=== PATIENT | male | born 1940 | race Caucasian/White ===

== ENCOUNTER 2022-04-09 08:49 | Emergency (ER) | payer OTHER, MEDICARE ==
--- OUTSIDE RECORDS SUMMARY | 2022-04-09 08:57 | XMS REPORT | Continuity of Care Document ---
:1940 Author Organization [facility] [place] t Address [address] [place] [address] Dr. [address]. [address] [place] [address] Care Team Providers Name Role Phone Rafael Pulido Primary Care Physician FERNANDO BROWN Attending Clinician Unavailable GUANAKITO ARRIOLA Attending Clinician Unavailable BRENTON CALABRESE Attending Clinician Unavailable Fernando Brown MD Attending Clinician Doctor Unassigned, Delevan Attending Clinician Unavailable Guanakito Dee Attending Clinician Pob, [facility] Main Attending Clinician Unavailable Kelli Montiel MD Attending Clinician RUMA PRASAD Attending Clinician Unavailable Ruma Prasad MD Attending Clinician BILL MCNEIL Attending Clinician Unavailable Bill Mcneil MD Attending Clinician PARAS SNOW Attending Clinician Unavailable PARAS SNOW Attending Clinician Unavailable Paras Snow MD Attending Clinician FERNANDO BROWN Admitting Clinician Unavailable BILL MCNEIL Admitting Clinician Unavailable Payers Payer Name Policy Type Policy Number Effective Date Expiration Date S [facility] MEDICARE PART A \\T\\ [id number] 2003 B 00:00:00 [facility] [id number] 2018 MEDICARE SUPPLEMENT 00:00:00 Problems Condition Condition Condition Status Onset Resolution Last Treating Co mments Source Name Details Category Date Date Treatment Clinician Date 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 Added automatic ally from request for surgery [id number] Abnormal Abnormal Disease Active Metho di cardiovasc cardiovasc 03-22 st ular ular 00:00: Hospita stress stress 00 l test test Hypertensi Hypertensi Disease Active U nivers on on ity of [facility] Allergies, Adverse Reactions, Alerts Allergy Allergy Status Severity Reaction(s) Onset Inactive Treating Comm ents Source Name Type Date Date Clinician Predniso Propensi Active Other (See Hallucina Methodi ne ty to Comments) 03-[address] adverse 00:00: Hospita reaction 00 l s to drug Predniso Propensi Active Other - See Hyperact i Univers ne ty to comments 3-15 vity, ity of adverse 00:00: couldn't [place] reaction 00 sleep Medical s to [place] drug PREDNISO DRUG Active Med Other-Cmnt Univ ers NE INGREDI 3-15 ity of 00:00: [place] 00 [facility] Family History Family Member Diagnosis Comments Start Date Stop Date Source Maternal aunt Heart attack [facility] Maternal uncle Heart attack [facility] Social History Social Habit Start Date Stop Date Quantity Comments Source History of Cigarette Smoker Universi ty of tobacco use [facility] Exposure to 2022-03-07 2022-03-17 Not sure University of SARS-CoV-2 00:00:00 10:16:00 [facility] (event) Branch Tobacco use and 2022-03-17 2022-03-17 Smokeless tobacco Un iversity of exposure 00:00:00 00:00:00 non-user [facility] Tobacco Comment 2022-03-17 2022-03-17 Smoke for 4 years Un iversity of 00:00:00 00:00:00 and quit 60 years [facility] chuy ago. Branch Alcohol intake 2018-05-16 2018-05-16 Current [facility] 00:00:00 00:00:00 non-drinker of alcohol (finding) Sex Ass[birth year] [facility] 00:00:00 00:00:00 Smoking Status Start Date Stop Date Source Ex-smoker 2022-03-17 00:00:00 2022-03-17 00:00:00 [facility] Never smoked tobacco [facility] Medications Ordered Filled Start Stop Current Ordering Indication Dosage Frequency Signature Comments Components Source Medication Medication Date Date Medication? Clinician (SIG) Name Name gemfibroziL 0 Yes 600mg Take 600 U nivers 600 mg 1-18 mg by ity of tablet 10:52: mouth in [place] 39 the Medical morning Branch and 600 mg in the evening. isosorbide 0 Yes 210mg Take 210 Un el mononitrate 1-18 mg by ity of 60 mg 24 hr 10:52: mouth in [place] tablet 39 the Medical morning. [place] Patient states he takes 90 mg in the am and 120 mg in the pm for a total of 210 mg of Isosorbide Mononitrat e 60 mg tablet. levothyroxi 0 Yes 50ug Take 50 Uni vers ne 50 mcg 1-18 mcg by ity of tablet 10:52: mouth [place] 39 every Medical morning. [place] vitamin e Yes 400U Take 400 Univ ers (AQUASOL E) 1-18 Units by ity of 400 unit 10:52: mouth [place] capsule 39 daily. [facility] gemfibroziL Yes 600mg Take 600 U nivers 600 mg 1-18 mg by ity of tablet 10:52: mouth in [place] 39 the Medical morning Branch and 600 mg in the evening. isosorbide 0 Yes 210mg Take 210 Un el mononitrate 1-18 mg by ity of 60 mg 24 hr 10:52: mouth in [place] tablet 39 the Medical morning. [place] Patient states he takes 90 mg in the am and 120 mg in the pm for a total of 210 mg of Isosorbide Mononitrat e 60 mg tablet. levothyroxi 2022-0 Yes 50ug Take 50 Uni vers ne 50 mcg 1-18 mcg by ity of tablet 10:52: mouth [place] 39 every Medical morning. Branch vitamin e 2023-0 Yes 400U Take 400 Univ ers (AQUASOL E) 1-18 Units by ity of 400 unit 10:52: mouth [place] capsule 39 daily. Medical Branch gemfibroziL 2023-0 Yes 600mg Take 600 U nivers 600 mg 1-18 mg by ity of tablet 10:52: mouth in [place] 39 the Medical morning Branch and 600 mg in the evening. isosorbide 2023-0 Yes 210mg Take 210 Un el mononitrate 1-18 mg by ity of 60 mg 24 hr 10:52: mouth in [place] tablet 39 the Medical morning. Branch Patient states he takes 90 mg in the am and 120 mg in the pm for a total of 210 mg of Isosorbide Mononitrat e 60 mg tablet. levothyroxi 3-0 Yes 50ug Take 50 Uni vers ne 50 mcg 1-18 mcg by ity of tablet 10:52: mouth [place] 39 every Medical morning. Branch vitamin e 3-0 Yes 400U Take 400 Univ ers (AQUASOL E) 1-18 Units by ity of 400 unit 10:52: mouth [place] capsule 39 daily. Medical Branch gemfibroziL 3-0 Yes 600mg Take 600 U nivers 600 mg 1-18 mg by ity of tablet 10:52: mouth in [place] 39 the Medical morning Branch and 600 mg in the evening. isosorbide 2023-0 Yes 210mg Take 210 Un el mononitrate 1-18 mg by ity of 60 mg 24 hr 10:52: mouth in [place] tablet 39 the Medical morning. Branch Patient states he takes 90 mg in the am and 120 mg in the pm for a total of 210 mg of Isosorbide Mononitrat e 60 mg tablet. levothyroxi 3-0 Yes 50ug Take 50 Uni vers ne 50 mcg 1-18 mcg by ity of tablet 10:52: mouth [place] 39 every Medical morning. Branch vitamin e 3-0 Yes 400U Take 400 Univ ers (AQUASOL E) 1-18 Units by ity of 400 unit 10:52: mouth [place] capsule 39 daily. Medical Branch gemfibroziL 2023-0 Yes 600mg Take 600 U nivers 600 mg 1-18 mg by ity of tablet 10:52: mouth in [place] 39 the Medical morning Branch and 600 mg in the evening. isosorbide 2023-0 Yes 210mg Take 210 Un el mononitrate 1-18 mg by ity of 60 mg 24 hr 10:52: mouth in [place] tablet 39 the Medical morning. Branch Patient states he takes 90 mg in the am and 120 mg in the pm for a total of 210 mg of Isosorbide Mononitrat e 60 mg tablet. levothyroxi 3-0 Yes 50ug Take 50 Uni vers ne 50 mcg 1-18 mcg by ity of tablet 10:52: mouth [place] 39 every Medical morning. Branch vitamin e 3-0 Yes 400U Take 400 Univ ers (AQUASOL E) 1-18 Units by ity of 400 unit 10:52: mouth [place] capsule 39 daily. Medical Branch gemfibroziL 3-0 Yes 600mg Take 600 U nivers 600 mg 1-18 mg by ity of tablet 10:52: mouth in [place] 39 the Medical morning Branch and 600 mg in the evening. isosorbide 3-0 Yes 210mg Take 210 Un el mononitrate 1-18 mg by ity of 60 mg 24 hr 10:52: mouth in [place] tablet 39 the Medical morning. Branch Patient states he takes 90 mg in the am and 120 mg in the pm for a total of 210 mg of Isosorbide Mononitrat e 60 mg tablet. levothyroxi 3-0 Yes 50ug Take 50 Uni vers ne 50 mcg 1-18 mcg by ity of tablet 10:52: mouth [place] 39 every Medical morning. Branch vitamin e 3-0 Yes 400U Take 400 Univ ers (AQUASOL E) 1-18 Units by ity of 400 unit 10:52: mouth [place] capsule 39 daily. Medical Branch gemfibroziL 3-0 Yes 600mg Take 600 U nivers 600 mg 1-18 mg by ity of tablet 10:52: mouth in [place] 39 the Medical morning Branch and 600 mg in the evening. isosorbide 2023-0 Yes 210mg Take 210 Un el mononitrate 1-18 mg by ity of 60 mg 24 hr 10:52: mouth in [place] tablet 39 the Medical morning. [place] Patient states he takes 90 mg in the am and 120 mg in the pm for a total of 210 mg of Isosorbide Mononitrat e 60 mg tablet. levothyroxi Yes 50ug Take 50 Uni vers ne 50 mcg 1-18 mcg by ity of tablet 10:52: mouth [place] 39 every Medical morning. Branch vitamin e Yes 400U Take 400 Univ ers (AQUASOL E) 1-18 Units by ity of 400 unit 10:52: mouth [place] capsule 39 daily. Medical Branch gemfibroziL Yes 600mg Take 600 U nivers 600 mg 1-18 mg by ity of tablet 10:52: mouth in [place] 39 the Medical morning Branch and 600 mg in the evening. isosorbide Yes 210mg Take 210 Un el mononitrate 1-18 mg by ity of 60 mg 24 hr 10:52: mouth in [place] tablet 39 the Medical morning. Branch Patient states he takes 90 mg in the am and 120 mg in the pm for a total of 210 mg of Isosorbide Mononitrat e 60 mg tablet. levothyroxi Yes 50ug Take 50 Uni vers ne 50 mcg 1-18 mcg by ity of tablet 10:52: mouth [place] 39 every Medical morning. Branch vitamin e Yes 400U Take 400 Univ ers (AQUASOL E) 1-18 Units by ity of 400 unit 10:52: mouth [place] capsule 39 daily. Medical Branch metoprolol Yes 75mg Take 75 mg U nivers tartrate 50 1-18 by mouth ity of mg tablet 10:35: in the [place] [address] morning Medical and 75 mg Branch in the evening. Patient takes 1.5 tablet (75 mg) in the morning and 1.5 tablet (75 mg) at night for a total of 150 mg of Metoprolol . cholestyram Yes 1{packe Take 1 U nivers ine 1-18 t} Packet by ity of (QUESTRAN) 10:35: [place] 4 [place] 20 (two) Medical packet times Branch daily. aspirin 325 Yes 325mg Take 325 U nivers mg tablet 1-18 mg by ity of 10:35: mouth [place] 20 daily. Medical Branch MULTIVITAMI Yes 1{tbl} Take 1 Tab Univers N ORAL 1-18 by mouth ity of 10:35: daily. [place] 20 Medical Branch ascorbic 2023-0 Yes 500mg Take 500 Univ ers acid 1-18 mg by ity of (VITAMIN C) 10:35: mouth [place] 500 mg 20 daily. Medical tablet Branch vitamin 3-0 Yes 1000ug Take 1,000 Un el B-12 1-18 mcg by ity of (CYANOCOBAL 10:35: mouth in [place] AGUILAR) 500 20 the Medical mcg tablet morning. Branc h omega-3 2022-0 Yes 3g Take 3 g Univer s fatty 1-18 by mouth ity of acids-vitam 10:35: [place] in E (FISH 20 morning. Medic al OIL) 1,000 Branch mg capsule acetaminoph 2022-0 Yes 500mg Take 500 U nivers en 500 mg 1-18 mg by ity of tablet 10:35: mouth in [place] 20 the Medical morning Branch and 500 mg in the evening. metoprolol 2022-0 Yes 75mg Take 75 mg U nivers tartrate 50 1-18 by mouth ity of mg tablet 10:35: in the [place] 20 morning Medical and 75 mg Branch in the evening. Patient takes 1.5 tablet (75 mg) in the morning and 1.5 tablet (75 mg) at night for a total of 150 mg of Metoprolol . cholestyram 2022-0 Yes 1{packe Take 1 U nivers ine 1-18 t} Packet by ity of (QUESTRAN) 10:35: mouth 2 [place] 4 [place] 20 (two) Medical packet times Branch daily. aspirin 325 2022-0 Yes 325mg Take 325 U nivers mg tablet 1-18 mg by ity of 10:35: mouth [place] 20 daily. Medical Branch MULTIVITAMI 2022-0 Yes 1{tbl} Take 1 Tab Univers N ORAL 1-18 by mouth ity of 10:35: daily. [place] 20 Medical Branch ascorbic 3-0 Yes 500mg Take 500 Univ ers acid 1-18 mg by ity of (VITAMIN C) 10:35: mouth [place] 500 mg 20 daily. Medical tablet Branch vitamin 3-0 Yes 1000ug Take 1,000 Un el B-12 1-18 mcg by ity of (CYANOCOBAL 10:35: mouth in [place] AGUILAR) 500 20 the Medical mcg tablet morning. Branc h omega-3 2022-0 Yes 3g Take 3 g Univer s fatty 1-18 by mouth ity of acids-vitam 10:35: [place] in [place] (FISH 20 morning. Medic al OIL) 1,000 Branch mg capsule acetaminoph 2022-0 Yes 500mg Take 500 U nivers en 500 mg 1-18 mg by ity of tablet 10:35: mouth in [place] 20 the Medical morning Branch and 500 mg in the evening. metoprolol 2022-0 Yes 75mg Take 75 mg U nivers tartrate 50 1-18 by mouth ity of mg tablet 10:35: in the [place] 20 morning Medical and 75 mg Branch in the evening. Patient takes 1.5 tablet (75 mg) in the morning and 1.5 tablet (75 mg) at night for a total of 150 mg of Metoprolol . cholestyram 2022-0 Yes 1{packe Take 1 U nivers ine 1-18 t} Packet by ity of (QUESTRAN) 10:35: mouth 2 [place] 4 [place] 20 (two) Medical packet times Branch daily. aspirin 325 2022-0 Yes 325mg Take 325 U nivers mg tablet 1-18 mg by ity of 10:35: mouth [place] 20 daily. Medical Branch MULTIVITAMI 2022-0 Yes 1{tbl} Take 1 Tab Univers N ORAL 1-18 by mouth ity of 10:35: daily. [place] [address] Medical Branch ascorbic 3-0 Yes 500mg Take 500 Univ ers acid 1-18 mg by ity of (VITAMIN C) 10:35: mouth [place] 500 mg 20 daily. Medical tablet Branch vitamin 2022-0 Yes 1000ug Take 1,000 Un el B-12 1-18 mcg by ity of (CYANOCOBAL 10:35: mouth in [place] AGUILAR) 500 20 the Medical mcg tablet morning. Branc h omega-3 3-0 Yes 3g Take 3 g Univer s fatty 1-18 by mouth ity of acids-vitam 10:35: [place] in [place] (FISH 20 morning. Medic al OIL) 1,000 Branch mg capsule acetaminoph 2022-0 Yes 500mg Take 500 U nivers en 500 mg 1-18 mg by ity of tablet 10:35: mouth in [place] 20 the Medical morning Branch and 500 mg in the evening. metoprolol 2022-0 Yes 75mg Take 75 mg U nivers tartrate 50 1-18 by mouth ity of mg tablet 10:35: in the [place] 20 morning Medical and 75 mg Branch in the evening. Patient takes 1.5 tablet (75 mg) in the morning and 1.5 tablet (75 mg) at night for a total of 150 mg of Metoprolol . cholestyram 3-0 Yes 1{packe Take 1 U nivers ine 1-18 t} Packet by ity of (QUESTRAN) 10:35: mouth [place] 4 [place] 20 (two) Medical packet times Branch daily. aspirin 325 202-0 Yes 325mg Take 325 U nivers mg tablet 1-18 mg by ity of 10:35: mouth [place] 20 daily. Medical Branch MULTIVITAMI 2022-0 Yes 1{tbl} Take 1 Tab Univers N ORAL 1-18 by mouth ity of 10:35: daily. [place] [address] Medical Branch ascorbic 3-0 Yes 500mg Take 500 Univ ers acid 1-18 mg by ity of (VITAMIN C) 10:35: mouth [place] 500 mg 20 daily. Medical tablet Branch vitamin 2022-0 Yes 1000ug Take 1,000 Un el B-12 1-18 mcg by ity of (CYANOCOBAL 10:35: mouth in [place] AGUILAR) 500 20 the Medical mcg tablet morning. Branc h omega-3 2022-0 Yes 3g Take 3 g Univer s fatty 1-18 by mouth ity of acids-vitam 10:35: [place] in [place] (FISH 20 morning. Medic al OIL) 1,000 Branch mg capsule acetaminoph 2022-0 Yes 500mg Take 500 U nivers en 500 mg 1-18 mg by ity of tablet 10:35: mouth in [place] 20 the Medical morning Branch and 500 mg in the evening. metoprolol 3-0 Yes 75mg Take 75 mg U nivers tartrate 50 1-18 by mouth ity of mg tablet 10:35: in the [place] [address] morning Medical and 75 mg Branch in the evening. Patient takes 1.5 tablet (75 mg) in the morning and 1.5 tablet (75 mg) at night for a total of 150 mg of Metoprolol . cholestyram 2022-0 Yes 1{packe Take 1 U nivers ine 1-18 t} Packet by ity of (QUESTRAN) 10:35: mouth 2 [place] 4 gram 20 (two) Medical packet times Branch daily. aspirin 325 2022-0 Yes 325mg Take 325 U nivers mg tablet 1-18 mg by ity of 10:35: mouth [place] 20 daily. Medical Branch MULTIVITAMI 2022-0 Yes 1{tbl} Take 1 Tab Univers N ORAL 1-18 by mouth ity of 10:35: daily. [place] [address] Medical Branch ascorbic 2022-0 Yes 500mg Take 500 Univ ers acid 1-18 mg by ity of (VITAMIN C) 10:35: mouth [place] 500 mg 20 daily. Medical tablet Branch vitamin 2022-0 Yes 1000ug Take 1,000 Un el B-12 1-18 mcg by ity of (CYANOCOBAL 10:35: mouth in [place] AGUILAR) 500 20 the Medical mcg tablet morning. Branc h omega-3 0 Yes 3g Take 3 g Univer s fatty 1-18 by mouth ity of acids-vitam 10:35: in the [facility] [place] [facility] (FISH [facility] morning. Medic al OIL) 1,000 Branch mg capsule acetaminoph 0 Yes 500mg Take 500 U nivers en 500 mg 1-18 mg by ity of tablet 10:35: mouth in [place] 20 the Medical morning Branch and 500 mg in the evening. metoprolol 0 Yes 75mg Take 75 mg U nivers tartrate 50 1-18 by mouth ity of mg tablet 10:35: in the [place] 20 morning Medical and 75 mg Branch in the evening. Patient takes 1.5 tablet (75 mg) in the morning and 1.5 tablet (75 mg) at night for a total of 150 mg of Metoprolol . cholestyram 0 Yes 1{packe Take 1 U nivers ine 1-18 t} Packet by ity of (QUESTRAN) 10:35: mouth 2 [place] 4 gram 20 (two) Medical packet times Branch daily. aspirin 325 2022-0 Yes 325mg Take 325 U nivers mg tablet 1-18 mg by ity of 10:35: mouth [place] 20 daily. Medical Branch MULTIVITAMI 0 Yes 1{tbl} Take 1 Tab Univers N ORAL 1-18 by mouth ity of 10:35: daily. [place] [address] Medical Branch ascorbic 2022-0 Yes 500mg Take 500 Univ ers acid 1-18 mg by ity of (VITAMIN C) 10:35: mouth [place] 500 mg 20 daily. Medical tablet Branch vitamin 3-0 Yes 1000ug Take 1,000 Un el B-12 1-18 mcg by ity of (CYANOCOBAL 10:35: mouth in [place] AGUILAR) 500 20 the Medical mcg tablet morning. Branc h omega-3 2022-0 Yes 3g Take 3 g Univer s fatty 1-18 by mouth ity of acids-vitam 10:35: in [place] in [place] (FISH 20 morning. Medic al OIL) 1,000 Branch mg capsule acetaminoph 2022-0 Yes 500mg Take 500 U nivers en 500 mg 1-18 mg by ity of tablet 10:35: mouth in [place] 20 the Medical morning Branch and 500 mg in the evening. metoprolol 2022-0 Yes 75mg Take 75 mg U nivers tartrate 50 1-18 by mouth ity of mg tablet 10:35: in the [place] 20 morning Medical and 75 mg Branch in the evening. Patient takes 1.5 tablet (75 mg) in the morning and 1.5 tablet (75 mg) at night for a total of 150 mg of Metoprolol . cholestyram 2022-0 Yes 1{packe Take 1 U nivers ine 1-18 t} Packet by ity of (QUESTRAN) 10:35: mouth 2 [place] 4 gram 20 (two) Medical packet times Branch daily. aspirin 325 2022-0 Yes 325mg Take 325 U nivers mg tablet 1-18 mg by ity of 10:35: mouth [place] 20 daily. Medical Branch MULTIVITAMI 2022-0 Yes 1{tbl} Take 1 Tab Univers N ORAL 1-18 by mouth ity of 10:35: daily. [place] 20 Medical Branch ascorbic 3-0 Yes 500mg Take 500 Univ ers acid 1-18 mg by ity of (VITAMIN C) 10:35: mouth [place] 500 mg 20 daily. Medical tablet Branch vitamin 2022-0 Yes 1000ug Take 1,000 Un el B-12 1-18 mcg by ity of (CYANOCOBAL 10:35: mouth in [place] AGUILAR) 500 20 the Medical mcg tablet morning. Branc h omega-3 2022-0 Yes 3g Take 3 g Univer s fatty 1-18 by mouth ity of acids-vitam 10:35: [place] in [place] (FISH 20 morning. Medic al OIL) 1,000 Branch mg capsule acetaminoph 0 Yes 500mg Take 500 U nivers en 500 mg 1-18 mg by ity of tablet 10:35: mouth in [place] 20 the Medical morning Branch and 500 mg in the evening. metoprolol 2022-0 Yes 75mg Take 75 mg U nivers tartrate 50 1-18 by mouth ity of mg tablet 10:35: in the [place] [address] morning Medical and 75 mg Branch in the evening. Patient takes 1.5 tablet (75 mg) in the morning and 1.5 tablet (75 mg) at night for a total of 150 mg of Metoprolol . cholestyram 2022-0 Yes 1{packe Take 1 U nivers ine 1-18 t} Packet by ity of (QUESTRAN) 10:35: mouth 2 [place] 4 gram 20 (two) Medical packet times Branch daily. aspirin 325 2022-0 Yes 325mg Take 325 U nivers mg tablet 1-18 mg by ity of 10:35: mouth [place] 20 daily. Medical Branch MULTIVITAMI 0 Yes 1{tbl} Take 1 Tab Univers N ORAL 1-18 by mouth ity of 10:35: daily. [place] [address] Medical Branch ascorbic 2022-0 Yes 500mg Take 500 Univ ers acid 1-18 mg by ity of (VITAMIN C) 10:35: mouth [place] 500 mg 20 daily. Medical tablet Branch vitamin 2022-0 Yes 1000ug Take 1,000 Un el B-12 1-18 mcg by ity of (CYANOCOBAL 10:35: mouth [place] AGUILAR) 500 20 the Medical mcg tablet morning. Branc h omega-3 2022-0 Yes 3g Take 3 g Univer s fatty 1-18 by mouth ity of acids-vitam 10:35: in [place] in [place] (FISH 20 morning. Medic al OIL) 1,000 Branch mg capsule acetaminoph 2022-0 Yes 500mg Take 500 U nivers en 500 mg 1-18 mg by ity of tablet 10:35: mouth in [place] 20 the Medical morning Branch and 500 mg in the evening. valACYclovi 2021-1 2022- No 1000mg [id number] Take 1 Methodi r (VALTREX) 0-03 12-[id number] 1000 MG 00:00: 04:59 3D (1,000 mg [facility] tablet 00 :00 total) by l mouth 3 (three) times a day for 7 days. HYDROcodone 2021-02 1{tbl} 1 tablet, Univers -acetaminop 0-01 11-28 Oral, ity of hen (NORCO 16:30: 16:34 ONCE, 1 [place] 5) 5-325 mg 00 :00 dose, On Medi claire tablet 1 Sat Branch tablet 11/28/21 at 1130, ALEX HYDROcodone 2021-02 No 1{tbl} Take 1 Tab Univers -acetaminop 0-01 11-28 by mouth ity of hen 11:32: 00:00 as needed [place] (LORTAB) 22 :00 for Pain. Medica l 7.5-500 mg Branch per tablet HYDROcodone 2021-02 No [id number] 1{tbl} Take 1 U nivers -acetaminop 0-12-06 tablet by it y of hen (NORCO) 00:00: 04:59 mouth [place] 7.5-325 mg 00 :00 every 8 Medica l per tablet (eight) Branch hours as needed for Pain for up to 7 days. Indication s: acute pain FENTanyl PF No 50ug 50 mcg, Un el (SUBLIMAZE 11-27 Slow IV ity o f (PF)) 05:15: 04:13 Push, [place] injection 00 :00 ONCE, 1 Medical 50 mcg dose, On Branch 11/27/21 at 0015, Routine ondansetron No 4mg 4 mg, Slow Univers (ZOFRAN 11-27 IV Push, ity of (PF)) 04:15: 04:13 ONCE, 1 [place] injection 4 00 :00 dose, On Medi claire mg [place] Branch 11/26/21 at 2315, ALEX iopamidol No [id number] 60mL 60 mL, Univers (ISOVUE 11-27 Intravenou ity o f 370-500 mL) 03:45: 03:45 s, ONCE, 1 [place] injection 00 :00 dose, On Medica l 60 mL [place] Branch 11/26/21 at 2245, Routine traMADoL 2021-0 Yes [id number] 50mg Take 1 Univers (ULTRAM) 50 9-29 tablet by ity of mg tablet 00:00: mouth [place] 00 every 6 Medical (six) Branch hours as needed for Pain (scale 7-10). Indication s: acute pain traMADoL 2021-0 Yes [id number] 50mg Take 1 Univers (ULTRAM) 50 9-29 tablet by ity of mg tablet 00:00: mouth [place] 00 every 6 Medical (six) Branch hours as needed for Pain (scale 7-10). Indication s: acute pain ketorolac 2021-0 Yes [id number] 10mg Take 1 U nivers 10 mg 9-29 tablet by ity of tablet 00:00: mouth [place] 00 every 6 Medical (six) Branch hours as needed for Pain (scale 7-10) (ALTERNATE WITH ULTRAM FOR PAIN). traMADoL 2021-0 Yes [id number] 50mg Take 1 Univers (ULTRAM) 50 9-29 tablet by ity of mg tablet 00:00: mouth [place] 00 every 6 Medical (six) Branch hours as needed for Pain (scale 7-10). Indication s: acute pain ketorolac 2021-0 Yes [id number] 10mg Take 1 U nivers 10 mg 9-29 tablet by ity of tablet 00:00: mouth [place] 00 every 6 Medical (six) Branch hours as needed for Pain (scale 7-10) (ALTERNATE WITH ULTRAM FOR PAIN). traMADoL 2021-0 Yes [id number] 50mg Take 1 Univers (ULTRAM) 50 9-29 tablet by ity of mg tablet 00:00: mouth [place] 00 every 6 Medical (six) Branch hours as needed for Pain (scale 7-10). Indication s: acute pain ketorolac 2021-0 Yes [id number] 10mg Take 1 U nivers 10 mg 9-29 tablet by ity of tablet 00:00: mouth [place] 00 every 6 Medical (six) Branch hours as needed for Pain (scale 7-10) (ALTERNATE WITH ULTRAM FOR PAIN). traMADoL 2021-0 Yes [id number] 50mg Take 1 Univers (ULTRAM) 50 9-29 tablet by ity of mg tablet 00:00: mouth [place] 00 every 6 Medical (six) Branch hours as needed for Pain (scale 7-10). Indication s: acute pain ketorolac 2022-0 Yes [id number] 10mg Take 1 U nivers 10 mg 9-29 tablet by ity of tablet 00:00: mouth [place] 00 every 6 Medical (six) Branch hours as needed for Pain (scale 7-10) (ALTERNATE WITH ULTRAM FOR PAIN). traMADoL 2-0 Yes [id number] 50mg Take 1 Univers (ULTRAM) 50 9-29 tablet by ity of mg tablet 00:00: mouth [place] 00 every 6 Medical (six) Branch hours as needed for Pain (scale 7-10). Indication s: acute pain ketorolac 2022-0 Yes [id number] 10mg Take 1 U nivers 10 mg 9-29 tablet by ity of tablet 00:00: mouth [place] 00 every 6 Medical (six) Branch hours as needed for Pain (scale 7-10) (ALTERNATE WITH ULTRAM FOR PAIN). traMADoL 2021-0 Yes [id number] 50mg Take 1 Univers (ULTRAM) 50 9-29 tablet by ity of mg tablet 00:00: mouth [place] 00 every 6 Medical (six) Branch hours as needed for Pain (scale 7-10). Indication s: acute pain ketorolac 2021-0 Yes [id number] 10mg Take 1 U nivers 10 mg 9-29 tablet by ity of tablet 00:00: mouth [place] 00 every 6 Medical (six) Branch hours as needed for Pain (scale 7-10) (ALTERNATE WITH ULTRAM FOR PAIN). traMADoL 2021-0 Yes 4647 50mg Take 1 [facility] (ULTRAM) 50 9-29 tablet by ity of mg tablet 00:00: mouth [place] 00 every 6 Medical (six) Branch hours as needed for Pain (scale 7-10). Indication s: acute pain ketorolac 2022-0 Yes [id number] 10mg Take 1 [facility] n[facility] 10 mg 9-29 tablet by ity of tablet 00:00: mouth [place] 00 every 6 Medical (six) Branch hours as needed for Pain (scale 7-10) (ALTERNATE WITH ULTRAM FOR PAIN). traMADoL 2022-0 Yes 4647 50mg Take 1 [facility] (ULTRAM) 50 9-29 tablet by ity of mg tablet 00:00: mouth [place] 00 every 6 Medical (six) Branch hours as needed for Pain (scale 7-10). Indication s: acute pain ketorolac 0 Yes [id number] 10mg Take 1 [facility] 10 mg 9-29 tablet by ity of tablet 00:00: mouth [place] 00 every 6 Medical (six) Branch hours as needed for Pain (scale 7-10) (ALTERNATE WITH ULTRAM FOR PAIN). traMADoL 0 Yes 4647 50mg Take 1 [facility] (ULTRAM) 50 9-29 tablet by ity of mg tablet 00:00: mouth [place] 00 every 6 Medical (six) Branch hours as needed for Pain (scale 7-10). Indication s: acute pain traMADoL 0 Yes 4647 50mg Take 1 [facility] (ULTRAM) 50 9-29 tablet by ity of mg tablet 00:00: mouth [place] 00 every 6 Medical (six) Branch hours as needed for Pain (scale 7-10). Indication s: acute pain traMADoL 0 Yes 4647 50mg Take 1 [facility] (ULTRAM) 50 9-29 tablet by [facility]y of mg tablet 00:00: mouth [place] 00 every 6 Medical (six) Branch hours as needed for Pain (scale 7-10). Indication s: acute pain traMADoL 0 Yes 4647 50mg Take 1 [facility] (ULTRAM) 50 9-29 tablet by ity of mg tablet 00:00: mouth [place] 00 every 6 Medical (six) Branch hours as needed for Pain (scale 7-10). Indication s: acute pain traMADoL 0 Yes 4647 50mg Take 1 [facility] (ULTRAM) 50 9-29 tablet by ity of mg tablet 00:00: mouth [place] 00 every 6 Medical (six) Branch hours as needed for Pain (scale 7-10). Indication s: acute pain traMADoL 2021-0 Yes 4647 50mg Take 1 [facility] (ULTRAM) 50 9-29 tablet by ity of mg tablet 00:00: mouth [place] 00 every 6 Medical (six) Branch hours as needed for Pain (scale 7-10). Indication s: acute pain traMADoL 2021-0 Yes 4647 50mg Take 1 [facility] (ULTRAM) 50 9-29 tablet by ity of mg tablet 00:00: mouth [place] 00 every 6 Medical (six) Branch hours as needed for Pain (scale 7-10). Indication s: acute pain metoprolol 2021- No 50mg Take 50 mg [facility] tartrate 11-05 by mouth 2 ity of (LOPRESSOR) 15:51: 00:[place] (two) [place] 50 mg 46 :00 times Medical tablet daily. Branch isosorbide 2021- No 30mg Take 30 mg [facility] mononitrate 11-05 by mouth ity of (IMDUR) 30 15:51: 00:00 [place]. [place] mg 24 hr 46 :00 Medical tablet Branch aspirin 2021- No 81mg Take 81 mg [facility] vers (ASPIRIN 11-05 by mouth ity of LOW DOSE) 15:51: 00:00 daily. [place] 81 mg EC 46 :00 Medical tablet Branch metoprolol 2021- No 50mg Take 50 mg [facility] tartrate 11-05 by mouth 2 ity of (LOPRESSOR) 15:51: 00:00 (two) [place] 50 mg 46 :00 times Medical tablet daily. Branch isosorbide 2021- No 30mg Take 30 mg [facility] mononitrate 11-05 by mouth ity of (IMDUR) 30 15:51: 00:00 [place]. [place] mg 24 hr 46 :00 Medical tablet Branch aspirin 2021- No 81mg Take 81 mg [facility] vers (ASPIRIN 11-05 by mouth ity of LOW DOSE) 15:51: 00:00 daily. [place] 81 mg EC 46 :00 Medical tablet Branch metoprolol 0 Yes 50mg Take 50 mg U nivers tartrate 50 9-08 by mouth. ity of mg tablet 15:51: [address] metoprolol 0 Yes 50mg Take 50 mg U nivers tartrate 50 9-08 by mouth. ity of mg tablet 15:51: [address] metoprolol 0 Yes 50mg Take 50 mg U nivers tartrate 50 9-08 by mouth. ity of mg tablet 15:51: [address] metoprolol Yes 50mg Take 50 mg [facility] nivers tartrate 50 9-08 by mouth. ity of mg tablet 15:51: [address] metoprolol 0 Yes 50mg Take 50 mg [facility] nivers tartrate 50 9-08 by mouth. ity of mg tablet 15:51: [address] metoprolol 0 Yes 50mg Take 50 mg U nivers tartrate 50 9-08 by mouth. ity of mg tablet 15:51: [address] metoprolol 0 Yes 50mg Take 50 mg U nivers tartrate 50 9-08 by mouth. ity of mg tablet 15:51: [address] metoprolol 0 Yes 50mg Take 50 mg U nivers tartrate 50 9-08 by mouth. ity of mg tablet 15:51: [address] metoprolol 0 Yes 50mg Take 50 mg U nivers tartrate 50 9-08 by mouth. ity of mg tablet 15:51: [address] metoprolol 0 Yes 50mg Take 50 mg U nivers tartrate 50 9-08 by mouth. ity of mg tablet 15:51: [address] metoprolol Yes 50mg Take 50 mg U nivers tartrate 50 9-08 by mouth. ity of mg tablet 15:51: [address] metoprolol Yes 50mg Take 50 mg U nivers tartrate 50 9-08 by mouth. ity of mg tablet 15:51: [address] metoprolol 0 Yes 50mg Take 50 mg U nivers tartrate 50 9-08 by mouth. ity of mg tablet 15:51: [address] metoprolol 0 Yes 50mg Take 50 mg U nivers tartrate 50 9-08 by mouth. ity of mg tablet 15:51: [address] temazepam 2021-0 Yes TAKE 1 [facility] 15 mg 8-24 CAPSULE BY ity of capsule 00:00: MOUTH [place] 00 EVERY DAY Medical AT BEDTIME Branch NEEDED FOR SLEEP temazepam 2021-0 Yes TAKE 1 [facility] 15 mg 8-24 CAPSULE BY ity of capsule 00:00: MOUTH [place] 00 EVERY DAY Medical AT BEDTIME Branch NEEDED FOR SLEEP temazepam 2021-0 Yes TAKE 1 [facility] 15 mg 8-24 CAPSULE BY ity of capsule 00:00: MOUTH [place] 00 EVERY DAY Medical AT BEDTIME Branch NEEDED FOR SLEEP temazepam 2021-0 Yes TAKE 1 [facility] 15 mg 8-24 CAPSULE BY ity of capsule 00:00: MOUTH [place] 00 EVERY DAY Medical AT BEDTIME Branch NEEDED FOR SLEEP temazepam 2021-0 Yes TAKE 1 [facility] 15 mg 8-24 CAPSULE BY ity of capsule 00:00: MOUTH [place] 00 EVERY DAY Medical AT BEDTIME Branch NEEDED FOR SLEEP temazepam 2021-0 Yes TAKE 1 [facility] 15 mg 8-24 CAPSULE BY ity of capsule 00:00: MOUTH 00 EVERY DAY Medical AT BEDTIME Branch NEEDED FOR SLEEP temazepam 2021-0 Yes TAKE 1 [facility] 15 mg 8-24 CAPSULE BY ity of capsule 00:00: MOUTH 00 EVERY DAY Medical AT BEDTIME Branch NEEDED FOR SLEEP temazepam 0 Yes TAKE 1 [facility] 15 mg 8-24 CAPSULE BY ity of capsule 00:00: MOUTH 00 EVERY DAY Medical AT BEDTIME Branch NEEDED FOR SLEEP temazepam 2021-0 Yes TAKE 1 [facility] 15 mg 8-24 CAPSULE BY ity of capsule 00:00: MOUTH 00 EVERY DAY Medical AT BEDTIME Branch NEEDED FOR SLEEP temazepam 2021-0 Yes TAKE 1 [facility] 15 mg 8-24 CAPSULE BY ity of capsule 00:00: MOUTH [place] 00 EVERY DAY Medical AT BEDTIME Branch NEEDED FOR SLEEP temazepam 2021-0 Yes TAKE 1 [facility] 15 mg 8-24 CAPSULE BY ity of capsule 00:00: MOUTH [place] 00 EVERY DAY Medical AT BEDTIME Branch NEEDED FOR SLEEP temazepam 2021-0 Yes TAKE 1 [facility] 15 mg 8-24 CAPSULE BY ity of capsule 00:00: MOUTH 00 EVERY DAY Medical AT BEDTIME Branch NEEDED FOR SLEEP temazepam 2021-0 Yes TAKE 1 [facility] 15 mg 8-24 CAPSULE BY ity of capsule 00:00: MOUTH [place] 00 EVERY DAY Medical AT BEDTIME Branch NEEDED FOR SLEEP temazepam 2021-0 Yes TAKE 1 [facility] 15 mg 8-24 CAPSULE BY ity of capsule 00:00: MOUTH [place] 00 EVERY DAY Medical AT BEDTIME Branch NEEDED FOR SLEEP temazepam 2021-0 Yes TAKE 1 [facility] 15 mg 8-24 CAPSULE BY ity of capsule 00:00: MOUTH [place] 00 EVERY DAY Medical AT BEDTIME Branch NEEDED FOR SLEEP temazepam 2021-0 Yes TAKE 1 [facility] 15 mg 8-24 CAPSULE BY ity of capsule 00:00: MOUTH [place] 00 EVERY DAY Medical AT BEDTIME Branch NEEDED FOR SLEEP temazepam 2021-0 Yes TAKE 1 [facility] 15 mg 8-24 CAPSULE BY ity of capsule 00:00: EVERY DAY Medical AT BEDTIME Branch NEEDED FOR SLEEP temazepam 2021-0 Yes TAKE 1 [facility] 15 mg 8-24 CAPSULE BY ity of capsule 00:00: EVERY DAY Medical AT BEDTIME Branch NEEDED FOR SLEEP temazepam 2021-0 Yes TAKE 1 [facility] 15 mg 8-24 CAPSULE BY ity of capsule 00:00: EVERY DAY Medical AT BEDTIME Branch NEEDED FOR SLEEP temazepam 2021-0 Yes TAKE 1 [facility] 15 mg 8-24 CAPSULE BY ity of capsule 00:00: EVERY DAY Medical AT BEDTIME Branch NEEDED FOR SLEEP temazepam 2021-0 Yes TAKE 1 [facility] 15 mg 8-24 CAPSULE BY ity of capsule 00:00: EVERY DAY Medical AT BEDTIME Branch NEEDED FOR SLEEP temazepam 2021-0 Yes TAKE 1 [facility] 15 mg 8-24 CAPSULE BY ity of capsule 00:00: EVERY DAY Medical AT BEDTIME Branch NEEDED FOR SLEEP LORazepam 2021-0 Yes TAKE 1 [facility] 0.5 mg 7-28 TABLET BY ity of tablet 00:00: EVERY DAY Medical NEEDED Branch LORazepam 2021-0 Yes TAKE 1 [facility] 0.5 mg 7-28 TABLET BY ity of tablet 00:00: EVERY DAY Medical NEEDED Branch LORazepam 2-0 Yes TAKE 1 [facility] 0.5 mg 7-28 TABLET BY ity of tablet 00:00: EVERY DAY Medical NEEDED Branch LORazepam 2-0 Yes TAKE 1 [facility] 0.5 mg 7-28 TABLET BY ity of tablet 00:00: EVERY DAY Medical NEEDED Branch LORazepam 2-0 Yes TAKE 1 [facility] 0.5 mg 7-28 TABLET BY ity of tablet 00:00: EVERY DAY Medical NEEDED Branch LORazepam 2-0 Yes TAKE 1 [facility] 0.5 mg 7-28 TABLET BY ity of tablet 00:00: EVERY DAY Medical NEEDED Branch LORazepam 2-0 Yes TAKE 1 [facility] 0.5 mg 7-28 TABLET BY ity of tablet 00:00: MOUTH EVERY DAY Medical NEEDED Branch LORazepam 2-0 Yes TAKE 1 [facility] 0.5 mg 7-28 TABLET BY ity of tablet 00:00: EVERY DAY Medical NEEDED Branch LORazepam 2-0 Yes TAKE 1 [facility] 0.5 mg 7-28 TABLET BY ity of tablet 00:00: EVERY DAY Medical NEEDED Branch LORazepam 2-0 Yes TAKE 1 [facility] 0.5 mg 7-28 TABLET BY ity of tablet 00:00: EVERY DAY Medical NEEDED Branch LORazepam 2-0 Yes TAKE 1 [facility] 0.5 mg 7-28 TABLET BY ity of tablet 00:00: EVERY DAY Medical NEEDED Branch LORazepam 2-0 Yes TAKE 1 [facility] 0.5 mg 7-28 TABLET BY ity of tablet 00:00: EVERY DAY Medical NEEDED Branch LORazepam 2-0 Yes TAKE 1 [facility] 0.5 mg 7-28 TABLET BY ity of tablet 00:00: EVERY DAY Medical NEEDED Branch LORazepam 2-0 Yes TAKE 1 [facility] 0.5 mg 7-28 TABLET BY ity of tablet 00:00: EVERY DAY Medical NEEDED Branch LORazepam 2-0 Yes TAKE 1 [facility] 0.5 mg 7-28 TABLET BY ity of tablet 00:00: EVERY DAY Medical NEEDED Branch LORazepam 2-0 Yes TAKE 1 [facility] 0.5 mg 7-28 TABLET BY ity of tablet 00:00: EVERY DAY Medical NEEDED Branch LORazepam 2-0 Yes TAKE 1 [facility] 0.5 mg 7-28 TABLET BY ity of tablet 00:00: EVERY DAY Medical NEEDED Branch LORazepam 2-0 Yes TAKE 1 [facility] 0.5 mg 7-28 TABLET BY ity of tablet 00:00: 00 EVERY DAY Medical NEEDED Branch LORazepam 2-0 Yes TAKE 1 [facility] 0.5 mg 7-28 TABLET BY ity of tablet 00:00: EVERY DAY Medical NEEDED Branch LORazepam 2022-0 Yes TAKE 1 [facility] 0.5 mg 7-28 TABLET BY ity of tablet 00:00: MOUTH EVERY DAY Medical NEEDED Branch LORazepam 2021-0 Yes TAKE 1 [facility] 0.5 mg 7-28 TABLET BY ity of tablet 00:00: MOUTH EVERY DAY Medical NEEDED Branch LORazepam 2021-0 Yes TAKE 1 [facility] 0.5 mg 7-28 TABLET BY ity of tablet 00:00: MOUTH EVERY DAY Medical NEEDED Branch Ranolazine 2021-0 Yes 1000mg Take 1,000 [facility] 1,000 mg 7-04 mg by ity of tablet 00:00: mouth [place] 00 the Medical morning Branch and 1,000 mg in the evening. Ranolazine 0 Yes TAKE 1 BY Un el 1,000 mg 7-04 MOUTH ity of tablet 00:00: TWICE [place] DAILY Medical Branch Ranolazine 2021-0 Yes TAKE 1 BY Un el 1,000 mg 7-04 MOUTH ity of tablet 00:00: TWICE [place] DAILY Medical Branch Ranolazine 2021-0 Yes TAKE 1 BY Un el 1,000 mg 7-04 MOUTH ity of tablet 00:00: TWICE [place] DAILY Medical Branch Ranolazine 2021-0 Yes TAKE 1 BY Un el 1,000 mg 7-04 MOUTH ity of tablet 00:00: TWICE [place] DAILY Medical Branch Ranolazine 2021-0 Yes TAKE 1 BY Un el 1,000 mg 7-04 MOUTH ity of tablet 00:00: TWICE [place] DAILY Medical Branch Ranolazine 2021-0 Yes TAKE 1 BY Un el 1,000 mg 7-04 MOUTH ity of tablet 00:00: TWICE [place] DAILY Medical Branch Ranolazine 2021-0 Yes TAKE 1 BY Un el 1,000 mg 7-04 MOUTH ity of tablet 00:00: TWICE [place] DAILY Medical Branch Ranolazine 2021-0 Yes TAKE 1 BY Un el 1,000 mg 7-04 MOUTH ity of tablet 00:00: TWICE [place] DAILY Medical Branch Ranolazine 2021-0 Yes TAKE 1 BY Un el 1,000 mg 7-04 MOUTH ity of tablet 00:00: TWICE [place] DAILY Medical Branch Ranolazine 2021-0 Yes TAKE 1 BY Un el 1,000 mg 7-04 MOUTH ity of tablet 00:00: TWICE [place] 00 DAILY Medical Branch Ranolazine 2022-0 Yes TAKE 1 BY Un el 1,000 mg 7-04 MOUTH ity of tablet 00:00: TWICE [place] 00 DAILY Medical Branch Ranolazine 2022-0 Yes TAKE 1 BY Un el 1,000 mg 7-04 MOUTH ity of tablet 00:00: TWICE [place] 00 DAILY Medical Branch Ranolazine 2022-0 Yes TAKE 1 BY Un el 1,000 mg 7-04 MOUTH ity of tablet 00:00: TWICE [place] 00 DAILY Medical Branch Ranolazine 2022-0 Yes TAKE 1 BY Un el 1,000 mg 7-04 MOUTH ity of tablet 00:00: TWICE [place] 00 DAILY Medical Branch Ranolazine 2022-0 Yes 1000mg Take 1,000 [facility] 1,000 mg 7-04 mg by ity of tablet 00:00: mouth in [place] 00 the Medical morning Branch and 1,000 mg in the evening. Ranolazine 2022-0 Yes 1000mg Take 1,000 [facility] 1,000 mg 7-04 mg by ity of tablet 00:00: mouth in [place] 00 the Medical morning Branch and 1,000 mg in the evening. Ranolazine 2022-0 Yes 1000mg Take 1,000 [facility] 1,000 mg 7-04 mg by ity of tablet 00:00: mouth in [place] 00 the Medical morning Branch and 1,000 mg in the evening. Ranolazine 2022-0 Yes 1000mg Take 1,000 [facility] 1,000 mg 7-04 mg by ity of tablet 00:00: mouth in [place] 00 the Medical morning Branch and 1,000 mg in the evening. Ranolazine 2022-0 Yes 1000mg Take 1,000 [facility] 1,000 mg 7-04 mg by ity of tablet 00:00: mouth in [place] 00 the Medical morning Branch and 1,000 mg in the evening. Ranolazine 2022-0 Yes 1000mg Take 1,000 [facility] 1,000 mg 7-04 mg by ity of tablet 00:00: mouth in [place] [id number] the Medical morning Branch and 1,000 mg in the evening. Ranolazine 2022-0 Yes 1000mg Take 1,000 [facility] 1,000 mg 7-04 mg by ity of tablet 00:00: mouth in [place] 00 the Medical morning Branch and 1,000 mg in the evening. nitroglycer 0 Yes DISSOLVE Un el in 0.4 mg 6-22 ONE TABLET ity of sublingual 00:00: UNDER THE [place] tablet 00 [facility] Medical EVERY 5 Branch MINUTES NEEDED FOR CHEST PAIN. DO NOT EXCEED A TOTAL OF 3 DOSES IN 15 MINUTES nitroglycer 2021-0 Yes DISSOLVE [facility] [place] in 0.4 mg 6-22 ONE TABLET ity of sublingual 00:00: UNDER THE [place] tablet 00 [facility] Medical EVERY 5 Branch MINUTES NEEDED FOR CHEST PAIN. DO NOT EXCEED A TOTAL OF 3 DOSES IN 15 MINUTES nitroglycer 2021-0 Yes DISSOLVE Un el in 0.4 mg 6-22 ONE TABLET ity of sublingual 00:00: UNDER THE [place] tablet 00 [facility] Medical EVERY 5 Branch MINUTES NEEDED FOR CHEST PAIN. DO NOT EXCEED A TOTAL OF 3 DOSES IN 15 MINUTES nitroglycer 2021-0 Yes DISSOLVE Un el in 0.4 mg 6-22 ONE TABLET ity of sublingual 00:00: UNDER THE [place] tablet 00 [facility] EVERY 5 Branch MINUTES NEEDED FOR CHEST PAIN. DO NOT EXCEED A TOTAL OF 3 DOSES IN 15 MINUTES nitroglycer 2021-0 Yes DISSOLVE Un el in 0.4 mg 6-22 ONE TABLET ity of sublingual 00:00: UNDER THE [place] tablet 00 [facility] Medical EVERY 5 Branch MINUTES NEEDED FOR CHEST PAIN. DO NOT EXCEED A TOTAL OF 3 DOSES IN 15 MINUTES nitroglycer 2021-0 Yes DISSOLVE Un el in 0.4 mg 6-22 ONE TABLET ity of sublingual 00:00: UNDER THE [place] tablet 00 [facility] Medical EVERY 5 Branch MINUTES NEEDED FOR CHEST PAIN. DO NOT EXCEED A TOTAL OF 3 DOSES IN 15 MINUTES nitroglycer 2021-0 Yes DISSOLVE Un el in 0.4 mg 6-22 ONE TABLET ity of sublingual 00:00: UNDER THE [place] tablet 00 [facility] Medical EVERY 5 Branch MINUTES NEEDED FOR CHEST PAIN. DO NOT EXCEED A TOTAL OF 3 DOSES IN 15 MINUTES nitroglycer 2021-0 Yes DISSOLVE Un [place] in 0.4 mg 6-22 ONE TABLET ity of sublingual 00:00: UNDER THE [place] tablet 00 [facility] Medical EVERY 5 Branch MINUTES NEEDED FOR CHEST PAIN. DO NOT EXCEED A TOTAL OF 3 DOSES IN 15 MINUTES nitroglycer 2022-0 Yes DISSOLVE Un el in 0.4 mg 6-22 ONE TABLET ity of sublingual 00:00: UNDER THE [place] tablet 00 [facility] Medical EVERY 5 Branch MINUTES NEEDED FOR CHEST PAIN. DO NOT EXCEED A TOTAL OF 3 DOSES IN 15 MINUTES nitroglycer Yes DISSOLVE Un el in 0.4 mg 6-22 ONE TABLET ity of sublingual 00:00: UNDER THE [place] tablet 00 [place] Medical EVERY 5 Branch MINUTES NEEDED FOR CHEST PAIN. DO NOT EXCEED A TOTAL OF 3 DOSES IN 15 MINUTES nitroglycer Yes DISSOLVE Un el in 0.4 mg 6-22 ONE TABLET ity of sublingual 00:00: UNDER THE [place] tablet 00 [place] Medical EVERY 5 Branch MINUTES NEEDED FOR CHEST PAIN. DO NOT EXCEED A TOTAL OF 3 DOSES IN 15 MINUTES nitroglycer Yes DISSOLVE Un el in 0.4 mg 6-22 ONE TABLET ity of sublingual 00:00: UNDER THE [place] tablet 00 [place] Medical EVERY 5 Branch MINUTES NEEDED FOR CHEST PAIN. DO NOT EXCEED A TOTAL OF 3 DOSES IN 15 MINUTES nitroglycer Yes DISSOLVE Un el in 0.4 mg 6-22 ONE TABLET ity of sublingual 00:00: UNDER THE [place] tablet 00 [place] Medical EVERY 5 Branch MINUTES NEEDED FOR CHEST PAIN. DO NOT EXCEED A TOTAL OF 3 DOSES IN 15 MINUTES nitroglycer Yes DISSOLVE Un [place] in 0.4 mg 6-22 ONE TABLET ity of sublingual 00:00: UNDER THE [place] tablet 00 [place] Medical EVERY 5 Branch MINUTES NEEDED FOR CHEST PAIN. DO NOT EXCEED A TOTAL OF 3 DOSES IN 15 MINUTES nitroglycer Yes DISSOLVE Un [place] in 0.4 mg 6-22 ONE TABLET ity of sublingual 00:00: UNDER THE [place] tablet 00 [place] Medical EVERY 5 Branch MINUTES NEEDED FOR CHEST PAIN. DO NOT EXCEED A TOTAL OF 3 DOSES IN 15 MINUTES nitroglycer Yes DISSOLVE Un el in 0.4 mg 6-22 ONE TABLET ity of sublingual 00:00: UNDER THE [place] tablet 00 [place] Medical EVERY 5 Branch MINUTES NEEDED FOR CHEST PAIN. DO NOT EXCEED A TOTAL OF 3 DOSES IN 15 MINUTES nitroglycer Yes DISSOLVE Un el in 0.4 mg 6-22 ONE TABLET ity of sublingual 00:00: UNDER THE [place] tablet 00 [place] Medical EVERY 5 Branch MINUTES NEEDED FOR CHEST PAIN. DO NOT EXCEED A TOTAL OF 3 DOSES IN 15 MINUTES nitroglycer 2021-0 Yes DISSOLVE Un el in 0.4 mg 6-22 ONE TABLET ity of sublingual 00:00: UNDER THE [place] tablet 00 T[place] Medical EVERY 5 Branch MINUTES NEEDED FOR CHEST PAIN. DO NOT EXCEED A TOTAL OF 3 DOSES IN 15 MINUTES nitroglycer 2021-0 Yes DISSOLVE Un el in 0.4 mg 6-22 ONE TABLET ity of sublingual 00:00: UNDER THE [place] tablet 00 T[place] Medical EVERY 5 Branch MINUTES NEEDED FOR CHEST PAIN. DO NOT EXCEED A TOTAL OF 3 DOSES IN 15 MINUTES nitroglycer Yes DISSOLVE Un el in 0.4 mg 6-22 ONE TABLET ity of sublingual 00:00: UNDER THE [place] tablet 00 T[place] Medical EVERY 5 Branch MINUTES NEEDED FOR CHEST PAIN. DO NOT EXCEED A TOTAL OF 3 DOSES IN 15 MINUTES nitroglycer Yes DISSOLVE Un el in 0.4 mg 6-22 ONE TABLET ity of sublingual 00:00: UNDER THE [place] tablet 00 T[place]UE Medical EVERY 5 Branch MINUTES NEEDED FOR CHEST PAIN. DO NOT EXCEED A TOTAL OF 3 DOSES IN 15 MINUTES nitroglycer Yes DISSOLVE Un el in 0.4 mg 6-22 ONE TABLET ity of sublingual 00:00: UNDER THE [place] tablet 00 T[place]UE Medical EVERY 5 Branch MINUTES NEEDED FOR CHEST PAIN. DO NOT EXCEED A TOTAL OF 3 DOSES IN 15 MINUTES CYCLOBENZAP 2020-0 Yes [id number] Take 1 [facility] RINE 10 mg 3-29 tablet by ity of tablet 00:00: mouth [place] 00 twice Medical daily Branch CYCLOBENZAP 2020-0 Yes [id number] Take 1 [facility] RINE 10 mg 3-29 tablet by ity of tablet 00:00: mouth [place] 00 twice Medical daily Branch CYCLOBENZAP 2020-0 Yes [id number] Take 1 [facility] RINE 10 mg 3-29 tablet by ity of tablet 00:00: mouth [place] 00 twice Medical daily Branch CYCLOBENZAP 2020-0 Yes [id number] Take 1 [facility] RINE 10 mg 3-29 tablet by ity of tablet 00:00: mouth [place] 00 twice Medical daily Branch CYCLOBENZAP 2020-0 Yes [id number] Take 1 [facility] RINE 10 mg 3-29 tablet by ity of tablet 00:00: mouth twice Medical daily Branch CYCLOBENZAP 2021-0 Yes [id number] Take 1 [facility] RINE 10 mg 3-29 tablet by ity of tablet 00:00: mouth twice Medical daily Branch CYCLOBENZAP 2021-0 Yes [id number] Take 1 [facility] RINE 10 mg 3-29 tablet by ity of tablet 00:00: mouth twice Medical daily Branch CYCLOBENZAP 2021-0 Yes [id number] Take 1 [facility] RINE 10 mg 3-29 tablet by ity of tablet 00:00: mouth twice Medical daily Branch CYCLOBENZAP 2021-0 Yes [id number] Take 1 [facility] RINE 10 mg 3-29 tablet by ity of tablet 00:00: mouth twice Medical daily Branch CYCLOBENZAP 2021-0 Yes [id number] Take 1 [facility] RINE 10 mg 3-29 tablet by ity of tablet 00:00: mouth twice Medical daily Branch CYCLOBENZAP 2021-0 Yes [id number] Take 1 [facility] RINE 10 mg 3-29 tablet by ity of tablet 00:00: mouth twice Medical daily Branch CYCLOBENZAP 2021-0 Yes [id number] Take 1 [facility] RINE 10 mg 3-29 tablet by ity of tablet 00:00: mouth twice Medical daily Branch CYCLOBENZAP 2021-0 Yes [id number] Take 1 [facility] RINE 10 mg 3-29 tablet by ity of tablet 00:00: mouth twice Medical daily Branch CYCLOBENZAP 2021-0 Yes [id number] Take 1 [facility] RINE 10 mg 3-29 tablet by ity of tablet 00:00: mouth twice Medical daily Branch GABAPENTIN 2019-1 Yes TAKE 1 [facility] 300 mg 2-02 CAPSULE BY ity of capsule 00:00: MOUTH THREE Medical TIMES Branch DAILY GABAPENTIN 2019-1 Yes TAKE 1 [facility] 300 mg 2-02 CAPSULE BY ity of capsule 00:00: MOUTH THREE Medical TIMES Branch DAILY GABAPENTIN 2019-1 Yes TAKE 1 Unive [facility] 300 mg 2-02 CAPSULE BY ity of capsule 00:00: MOUTH THREE Medical TIMES Branch DAILY GABAPENTIN 2019-1 Yes TAKE 1 Unive [facility] 300 mg 2-02 CAPSULE BY ity of capsule 00:00: MOUTH THREE Medical TIMES Branch DAILY GABAPENTIN 2019- Yes TAKE 1 Unive rs 300 mg 2-02 CAPSULE BY ity of capsule 00:00: MOUTH THREE Medical TIMES Branch DAILY GABAPENTIN 2019- Yes TAKE 1 Unive rs 300 mg 2-02 CAPSULE BY ity of capsule 00:00: MOUTH THREE Medical TIMES Branch DAILY GABAPENTIN 2019- Yes TAKE 1 Unive rs 300 mg 2-02 CAPSULE BY ity of capsule 00:00: MOUTH [facility] Medical TIMES Branch DAILY GABAPENTIN 2019- Yes TAKE 1 Unive rs 300 mg 2-02 CAPSULE BY ity of capsule 00:00: MOUTH [facility] Medical TIMES Branch DAILY GABAPENTIN 2019- Yes TAKE 1 Unive rs 300 mg 2-02 CAPSULE BY ity of capsule 00:00: MOUTH [facility] Medical TIMES Branch DAILY GABAPENTIN 2019- Yes TAKE 1 Unive [facility] 300 mg 2-02 CAPSULE BY ity of capsule 00:00: [facility] Medical TIMES Branch DAILY GABAPENTIN 2019- Yes TAKE 1 Unive rs 300 mg 2-02 CAPSULE BY ity of capsule 00:00: MOUTH [facility] Medical TIMES Branch DAILY GABAPENTIN 2019- Yes TAKE 1 Unive rs 300 mg 2-02 CAPSULE BY ity of capsule 00:00: MOUTH [facility] Medical TIMES Branch DAILY GABAPENTIN 2019- Yes TAKE 1 Unive rs 300 mg 2-02 CAPSULE BY ity of capsule 00:00: [facility] Medical TIMES Branch DAILY GABAPENTIN 2019- Yes TAKE 1 Unive rs 300 mg 2-02 CAPSULE BY ity of capsule 00:00: [facility] Medical TIMES Branch DAILY GABAPENTIN 2019- Yes TAKE 1 [facility] 300 mg 2-02 CAPSULE BY ity of capsule 00:00: MOUTH [facility] Medical TIMES Branch DAILY GABAPENTIN 2019- Yes TAKE 1 Unive rs 300 mg 2-02 CAPSULE BY ity of capsule 00:00: MOUTH [facility] Medical TIMES Branch DAILY GABAPENTIN 2019- Yes TAKE 1 Unive [facility] 300 mg 2-02 CAPSULE BY ity of capsule 00:00: MOUTH [facility] Medical TIMES Branch DAILY GABAPENTIN 2019- Yes TAKE 1 Unive rs 300 mg 2-02 CAPSULE BY ity of capsule 00:00: MOUTH [facility] Medical TIMES Branch DAILY GABAPENTIN 2019- Yes TAKE 1 Unive rs 300 mg 2-02 CAPSULE BY ity of capsule 00:00: MOUTH [facility] Medical TIMES Branch DAILY GABAPENTIN 2019- Yes TAKE 1 Unive rs 300 mg 2-02 CAPSULE BY ity of capsule 00:00: MOUTH [place] 00 THREE Medical TIMES Branch DAILY GABAPENTIN 2018-02 Yes TAKE 1 Unive rs 300 mg 2-02 CAPSULE BY ity of capsule 00:00: MOUTH [place] 00 THREE Medical TIMES Branch DAILY GABAPENTIN 2018-02 Yes TAKE 1 Unive rs 300 mg 2-02 CAPSULE BY ity of capsule 00:00: MOUTH [place] 00 THREE Medical TIMES Branch DAILY cholestyram Yes 1{packe Take 1 U nivers ine 2-08 t} Packet by ity of (QUESTRAN) 10:20: mouth 2 [place] 4 gram 13 (two) Medical packet times Branch daily. ascorbic Yes 500mg Take 500 Univ ers acid 2-08 mg by ity of (VITAMIN C) 10:20: mouth [place] 500 mg 13 daily. Medical tablet Branch vitamin e Yes 400U Take 400 Univ ers (AQUASOL E) 2-08 Units by ity of 400 unit 10:20: mouth [place] capsule 13 daily. Medical Branch omega-3 Yes 2g Take 2 g Univer s fatty 2-08 by mouth 2 ity of acids-vitam 10:20: (two) [place] in E (FISH 13 times Medical OIL) 1,000 daily. Branch mg capsule CoQ10, Yes 1{capsu Take 1 Cap Un el Ubiquinol, 2-08 le} by mouth ity o f (ACTIVE Q) 10:20: daily. [place] 200 mg 13 Medical capsule Branch acetaminoph Yes 500mg Take 500 U nivers en (TYLENOL 2-08 mg by ity of EXTRA 10:20: mouth 3 [place] STRENGTH) 13 (three) Medical 500 mg times Branch tablet daily. cholestyram Yes 1{packe Take 1 U nivers ine 2-08 t} Packet by ity of (QUESTRAN) 10:20: mouth 2 [place] 4 gram 13 (two) Medical packet times Branch daily. ascorbic 2018- Yes 500mg Take 500 [facility] ers acid 2-08 mg by ity of (VITAMIN C) 10:20: mouth [place] 500 mg 13 daily. Medical tablet Branch vitamin e Yes 400U Take 400 [facility] ers (AQUASOL E) 2-08 Units by ity of 400 unit 10:20: mouth [place] capsule 13 daily. Medical Branch omega-3 Yes 2g Take 2 g [facility]iver s fatty 2-08 by mouth 2 ity of acids-vitam 10:20: (two) [place] in E (FISH 13 times Medical OIL) 1,000 daily. Branch mg capsule CoQ10, Yes 1{capsu Take 1 Cap Un el Ubiquinol, 2-08 le} by mouth ity o f (ACTIVE Q) 10:20: daily. [place] 200 mg 13 Medical capsule Branch acetaminoph Yes 500mg Take 500 U nivers en (TYLENOL 2-08 mg by ity of EXTRA 10:20: mouth 3 [place] STRENGTH) 13 (three) Medical 500 mg times Branch tablet daily. cholestyram Yes 1{packe Take 1 U nivers ine 2-08 t} Packet by [facility] (QUESTRAN) 10:20: [place] 4 [place] 13 (two) Medical packet times Branch daily. ascorbic Yes 500mg Take 500 [facility] ers acid 2-08 mg by ity of (VITAMIN C) 10:20: mouth [place] 500 mg 13 daily. Medical tablet Branch vitamin e Yes 400U Take 400 [facility] ers (AQUASOL E) 2-08 Units by ity of 400 unit 10:20: mouth [place] capsule 13 daily. Medical Branch omega-3 Yes 2g Take 2 g [facility]iver s fatty 2-08 by mouth 2 ity of acids-vitam 10:20: (two) [place] in E (FISH 13 times Medical OIL) 1,000 daily. Branch mg capsule CoQ10, Yes 1{capsu Take 1 Cap Un el Ubiquinol, 2-08 le} by mouth ity o f (ACTIVE Q) 10:20: daily. [place] 200 mg 13 Medical capsule Branch acetaminoph Yes 500mg Take 500 U nivers en (TYLENOL 2-08 mg by ity of EXTRA 10:20: mouth 3 [place] STRENGTH) 13 (three) Medical 500 mg times Branch tablet daily. cholestyram Yes 1{packe Take 1 U nivers ine 2-08 t} Packet by [facility] (QUESTRAN) 10:20: mouth [place] 4 [place] 13 (two) Medical packet times Branch daily. ascorbic Yes 500mg Take 500 [facility] ers acid 2-08 mg by ity of (VITAMIN C) 10:20: mouth [place] 500 mg 13 daily. Medical tablet Branch vitamin e Yes 400U Take 400 [facility] ers (AQUASOL E) 2-08 Units by ity of 400 unit 10:20: mouth [place] capsule 13 daily. Medical Branch omega-3 Yes 2g Take 2 g [facility]iver s fatty 2-08 by mouth 2 ity of acids-vitam 10:20: (two) [place] in E (FISH 13 times Medical OIL) 1,000 daily. Branch mg capsule CoQ10, Yes 1{capsu Take 1 Cap Un el Ubiquinol, 2-08 le} by mouth ity o f (ACTIVE Q) 10:20: daily. [place] 200 mg 13 Medical capsule Branch acetaminoph Yes 500mg Take 500 U nivers en (TYLENOL 2-08 mg by ity of EXTRA 10:20: mouth 3 [place] STRENGTH) 13 (three) Medical 500 mg times Branch tablet daily. cholestyram Yes 1{packe Take 1 U nivers ine 2-08 t} Packet by [facility] (QUESTRAN) 10:20: mouth [place] 4 [place] 13 (two) Medical packet times Branch daily. ascorbic Yes 500mg Take 500 [facility] ers acid 2-08 mg by ity of (VITAMIN C) 10:20: mouth [place] 500 mg 13 daily. Medical tablet Branch vitamin e Yes 400U Take 400 [facility] ers (AQUASOL E) 2-08 Units by ity of 400 unit 10:20: mouth [place] capsule 13 daily. Medical Branch omega-3 Yes 2g Take 2 g Univer s fatty 2-08 by mouth 2 ity of acids-vitam 10:20: (two) [place] in E (FISH 13 times Medical OIL) 1,000 daily. Branch mg capsule CoQ10, Yes 1{capsu Take 1 Cap Un el Ubiquinol, 2-08 le} by mouth ity o f (ACTIVE Q) 10:20: daily. [place] 200 mg 13 Medical capsule Branch acetaminoph Yes 500mg Take 500 U nivers en (TYLENOL 2-08 mg by ity of EXTRA 10:20: mouth 3 [place] STRENGTH) 13 (three) Medical 500 mg times Branch tablet daily. cholestyram Yes 1{packe Take 1 U nivers ine 2-08 t} Packet by [facility] (QUESTRAN) 10:20: mouth 2 [place] 4 [place] 13 (two) Medical packet times Branch daily. ascorbic 2018- Yes 500mg Take 500 [facility] ers acid 2-08 mg by ity of (VITAMIN C) 10:20: mouth [place] 500 mg 13 daily. Medical tablet Branch vitamin e Yes 400U Take 400 [facility] ers (AQUASOL E) 2-08 Units by ity of 400 unit 10:20: mouth [place] capsule 13 daily. Medical Branch omega-3 Yes 2g Take 2 g Univer s fatty 2-08 by mouth 2 ity of acids-vitam 10:20: (two) [place] in E (FISH 13 times Medical OIL) 1,000 daily. Branch mg capsule CoQ10, Yes 1{capsu Take 1 Cap Un el Ubiquinol, 2-08 le} by mouth ity o f (ACTIVE Q) 10:20: daily. [place] 200 mg 13 Medical capsule Branch acetaminoph Yes 500mg Take 500 U nivers en (TYLENOL 2-08 mg by ity of EXTRA 10:20: mouth 3 [place] STRENGTH) 13 (three) Medical 500 mg times Branch tablet daily. cholestyram Yes 1{packe Take 1 U nivers ine 2-08 t} Packet by [facility] (QUESTRAN) 10:20: mouth 2 [place] 4 [place] 13 (two) Medical packet times Branch daily. ascorbic 2018- Yes 500mg Take 500 [facility] ers acid 2-08 mg by ity of (VITAMIN C) 10:20: mouth [place] 500 mg 13 daily. Medical tablet Branch vitamin e Yes 400U Take 400 [facility] ers (AQUASOL E) 2-08 Units by ity of 400 unit 10:20: mouth [place] capsule 13 daily. Medical Branch omega-3 Yes 2g Take 2 g Univer s fatty 2-08 by mouth 2 ity of acids-vitam 10:20: (two) [place] in E (FISH 13 times Medical OIL) 1,000 daily. Branch mg capsule CoQ10, Yes 1{capsu Take 1 Cap Un el Ubiquinol, 2-08 le} by mouth ity o f (ACTIVE Q) 10:20: daily. [place] 200 mg 13 Medical capsule Branch acetaminoph Yes 500mg Take 500 U nivers en (TYLENOL 2-08 mg by ity of EXTRA 10:20: mouth 3 [place] STRENGTH) 13 (three) Medical 500 mg times Branch tablet daily. cholestyram Yes 1{packe Take 1 U nivers ine 2-08 t} Packet by [facility] (QUESTRAN) 10:20: mouth 2 [place] 4 [place] 13 (two) Medical packet times Branch daily. ascorbic Yes 500mg Take 500 [facility] acid 2-08 mg by ity of (VITAMIN C) 10:20: mouth [place] 500 mg 13 daily. Medical tablet Branch vitamin e Yes 400U Take 400 [facility] (AQUASOL E) 2-08 Units by ity of 400 unit 10:20: mouth [place] capsule 13 daily. Medical Branch omega-3 Yes 2g Take 2 g Univer s fatty 2-08 by mouth 2 ity of acids-vitam 10:20: (two) [place] in E (FISH 13 times Medical OIL) 1,000 daily. Branch mg capsule CoQ10, Yes 1{capsu Take 1 Cap Un el Ubiquinol, 2-08 le} by mouth ity o f (ACTIVE Q) 10:20: daily. [place] 200 mg 13 Medical capsule Branch acetaminoph Yes 500mg Take 500 U nivers en (TYLENOL 2-08 mg by ity of EXTRA 10:20: mouth 3 [place] STRENGTH) 13 (three) Medical 500 mg times Branch tablet daily. cholestyram Yes 1{packe Take 1 U nivers ine 2-08 t} Packet by [facility] of (QUESTRAN) 10:20: mouth 2 [place] 4 gram 13 (two) Medical packet times Branch daily. ascorbic Yes 500mg Take 500 [facility] acid 2-08 mg by ity of (VITAMIN C) 10:20: mouth [place] 500 mg 13 daily. Medical tablet Branch vitamin e Yes 400U Take 400 [facility] ers (AQUASOL E) 2-08 Units by ity of 400 unit 10:20: mouth [place] capsule 13 daily. Medical Branch omega-3 Yes 2g Take 2 g Univer s fatty 2-08 by mouth 2 ity of acids-vitam 10:20: (two) [place] in E (FISH 13 times Medical OIL) 1,000 daily. Branch mg capsule CoQ10, Yes 1{capsu Take 1 Cap Un el Ubiquinol, 2-08 le} by mouth ity o f (ACTIVE Q) 10:20: daily. [place] 200 mg 13 Medical capsule Branch acetaminoph Yes 500mg Take 500 U nivers en (TYLENOL 2-08 mg by ity of EXTRA 10:20: mouth 3 [place] STRENGTH) 13 (three) Medical 500 mg times Branch tablet daily. cholestyram Yes 1{packe Take 1 U nivers ine 2-08 t} Packet by [facility] of (QUESTRAN) 10:20: mouth 2 [place] 4 gram 13 (two) Medical packet times Branch daily. ascorbic Yes 500mg Take 500 [facility] acid 2-08 mg by ity of (VITAMIN C) 10:20: mouth [place] 500 mg 13 daily. Medical tablet Branch vitamin e Yes 400U Take 400 [facility] (AQUASOL E) 2-08 Units by ity of 400 unit 10:20: mouth [place] capsule 13 daily. Medical Branch omega-3 Yes 2g Take 2 g Univer s fatty 2-08 by mouth 2 ity of acids-vitam 10:20: (two) [place] in E (FISH 13 times Medical OIL) 1,000 daily. Branch mg capsule CoQ10, Yes 1{capsu Take 1 Cap Un el Ubiquinol, 2-08 le} by mouth ity o f (ACTIVE Q) 10:20: daily. [place] 200 mg 13 Medical capsule Branch acetaminoph Yes 500mg Take 500 U nivers en (TYLENOL 2-08 mg by ity of EXTRA 10:20: mouth 3 [place] STRENGTH) 13 (three) Medical 500 mg times Branch tablet daily. cholestyram Yes 1{packe Take 1 U nivers ine 2-08 t} Packet by [facility] of (QUESTRAN) 10:20: mouth 2 [place] 4 gram 13 (two) Medical packet times Branch daily. ascorbic 2019 Yes 500mg Take 500 [facility] ers acid 2-08 mg by ity of (VITAMIN C) 10:20: mouth [place] 500 mg 13 daily. Medical tablet Branch vitamin e Yes 400U Take 400 [facility] (AQUASOL E) 2-08 Units by ity of 400 unit 10:20: mouth [place] capsule 13 daily. Medical Branch omega-3 Yes 2g Take 2 g Univer s fatty 2-08 by mouth 2 ity of acids-vitam 10:20: (two) [place] in E (FISH 13 times Medical OIL) 1,000 daily. Branch mg capsule CoQ10, Yes 1{capsu Take 1 Cap Un el Ubiquinol, 2-08 le} by mouth ity o f (ACTIVE Q) 10:20: daily. [place] 200 mg 13 Medical capsule Branch acetaminoph Yes 500mg Take 500 U nivers en (TYLENOL 2-08 mg by ity of EXTRA 10:20: mouth 3 [place] STRENGTH) 13 (three) Medical 500 mg times Branch tablet daily. cholestyram Yes 1{packe Take 1 U nivers ine 2-08 t} Packet by [facility] of (QUESTRAN) 10:20: mouth 2 [place] 4 gram 13 (two) Medical packet times Branch daily. ascorbic Yes 500mg Take 500 [facility] ers acid 2-08 mg by ity of (VITAMIN C) 10:20: mouth [place] 500 mg 13 daily. Medical tablet Branch vitamin e Yes 400U Take 400 [facility] ers (AQUASOL E) 2-08 Units by ity of 400 unit 10:20: mouth [place] capsule 13 daily. Medical Branch omega-3 Yes 2g Take 2 g Univer s fatty 2-08 by mouth 2 ity of acids-vitam 10:20: (two) [place] in E (FISH 13 times Medical OIL) 1,000 daily. Branch mg capsule CoQ10, Yes 1{capsu Take 1 Cap Un el Ubiquinol, 2-08 le} by mouth ity o f (ACTIVE Q) 10:20: daily. [place] 200 mg 13 Medical capsule Branch acetaminoph Yes 500mg Take 500 U nivers en (TYLENOL 2-08 mg by ity of EXTRA 10:20: mouth 3 [place] STRENGTH) 13 (three) Medical 500 mg times Branch tablet daily. cholestyram Yes 1{packe Take 1 U nivers ine 2-08 t} Packet by [facility] of (QUESTRAN) 10:20: mouth 2 [place] 4 gram 13 (two) Medical packet times Branch daily. ascorbic Yes 500mg Take 500 [facility] ers acid 2-08 mg by ity of (VITAMIN C) 10:20: mouth [place] 500 mg 13 daily. Medical tablet Branch vitamin e Yes 400U Take 400 [facility] ers (AQUASOL E) 2-08 Units by ity of 400 unit 10:20: mouth [place] capsule 13 daily. Medical Branch omega-3 Yes 2g Take 2 g Univer s fatty 2-08 by mouth 2 ity of acids-vitam 10:20: (two) [place] in E (FISH 13 times Medical OIL) 1,000 daily. Branch mg capsule CoQ10, Yes 1{capsu Take 1 Cap Un el Ubiquinol, 2-08 le} by mouth ity o f (ACTIVE Q) 10:20: daily. [place] 200 mg 13 Medical capsule Branch acetaminoph Yes 500mg Take 500 U nivers en (TYLENOL 2-08 mg by ity of EXTRA 10:20: mouth 3 [place] STRENGTH) 13 (three) Medical 500 mg times Branch tablet daily. cholestyram Yes 1{packe Take 1 U nivers ine 2-08 t} Packet by [facility] of (QUESTRAN) 10:20: mouth 2 [place] 4 gram 13 (two) Medical packet times Branch daily. ascorbic Yes 500mg Take 500 [facility] ers acid 2-08 mg by ity of (VITAMIN C) 10:20: mouth [place] 500 mg 13 daily. Medical tablet Branch vitamin e Yes 400U Take 400 [facility] ers (AQUASOL E) 2-08 Units by ity of 400 unit 10:20: mouth [place] capsule 13 daily. Medical Branch omega-3 Yes 2g Take 2 g Univer s fatty 2-08 by mouth 2 ity of acids-vitam 10:20: (two) [place] in E (FISH 13 times Medical OIL) 1,000 daily. Branch mg capsule CoQ10, Yes 1{capsu Take 1 Cap Un el Ubiquinol, 2-08 le} by mouth ity o f (ACTIVE Q) 10:20: daily. [place] 200 mg 13 Medical capsule Branch acetaminoph Yes 500mg Take 500 U nivers en (TYLENOL 2-08 mg by ity of EXTRA 10:20: mouth 3 [place] STRENGTH) 13 (three) Medical 500 mg times Branch tablet daily. metoprolol 2019-0 Yes 50mg Q.5D Take 50 mg M ethodi tartrate 1-[address] (LOPRESSOR) 14:51: (two) [facility] 50 mg 49 times a l tablet day. multivitami 2019-0 Yes 1{tbl} QD Take 1 Me thodi n 1-[address] (THERAGRAN) 14:51: mouth [facility] tablet 49 daily. l ascorbic 2019-0 Yes 500mg QD Take 500 Meth adama acid, 1-[address] vitamin C, 14:51: mouth [facility] (VITAMIN C) 49 daily. l 500 MG tablet vitamin E 2018-0 Yes 400U QD Take 400 Meth adama 400 UNIT 1-[address] capsule 14:51: mouth [facility] 49 daily. l cyanocobala 2018-0 Yes 500ug QD Take 500 M ethodi min 500 MCG 1-[address] tablet 14:51: mouth [facility] 49 daily. l omega 2019-0 Yes 1000mg Q.5D Take 1,000 Meth adama 3-dha-epa-f 1-[address] shila oil 14:51: mouth 2 [facility] (FISH OIL) 49 (two) l 1,000 mg times a (120 mg-180 day. TAKES mg) capsule 3000 MG IN THE MORNING AND 2000 MG IN THE EVENING coenzyme 2019-0 Yes 100mg QD Take 100 Meth adama Q10 1-[address] (COQ-10) 14:51: mouth [facility] 100 mg 49 daily. l capsule aspirin 2018-0 Yes 162mg QD Take 162 Metho di (ECOTRIN) 1-[address] 81 MG 14:51: mouth [facility] enteric 49 daily. l coated tablet clopidogrel 2019-0 Yes 75mg QD Take 75 mg [facility] (PLAVIX) 75 1-[address] mg tablet 14:51: daily. [facility] 49 l pantoprazol 2019-0 Yes 40mg QD Take 40 mg [facility] e 1-[address] (PROTONIX) 14:51: daily. [facility] 40 MG EC 49 l tablet ALPRAZolam 2019-0 Yes .25mg QD Take 0.25 M ethodi (XANAX) 1-[address] 0.25 MG 14:51: mouth [facility] tablet 49 nightly as l needed for anxiety. acetaminoph 2019-0 Yes 500mg Q.5D Take 500 M ethodi en 1-[address] (TYLENOL) 14:51: mouth 2 [facility] 500 MG 49 (two) l tablet times a day. HYDROcodone Yes 1{tbl} Take 1 Tab [facility] -acetaminop 8-07 by mouth ity of hen 10:24: as needed [place] (LORTAB) 42 for Pain. Medica l 7.5-500 mg Branch per tablet aspirin 325 Yes 325mg Take 325 U nivers mg tablet 8-07 mg by ity of 10:24: mouth [place] 42 daily. Medical Branch MULTIVITAMI Yes 1{tbl} Take 1 Tab Univers N ORAL 8-07 by mouth ity of 10:24: daily. [place] [address] Medical Branch vitamin Yes 500ug Take 500 Unive rs B-12 8-07 mcg by ity of (CYANOCOBAL 10:24: mouth [place] AGUILAR) 500 42 daily. Medical mcg tablet Branch naproxen Yes 2{capsu Take 2 Univ ers sodium 8-07 le} Caps by ity of (ALEVE) 220 10:24: mouth 2 [place] mg capsule 42 (two) Medical times Branch daily. omeprazole Yes 20mg Take 20 mg U nivers (PRILOSEC) 8-07 by mouth ity o f 20 mg 10:24: daily. [place] capsule 42 Medical Branch HYDROcodone Yes 1{tbl} Take 1 Tab [facility] -acetaminop 8-07 by mouth ity of hen 10:24: as needed [place] (LORTAB) 42 for Pain. Medica l 7.5-500 mg Branch per tablet aspirin 325 Yes 325mg Take 325 U nivers mg tablet 8-07 mg by ity of 10:24: mouth [place] 42 daily. Medical Branch MULTIVITAMI Yes 1{tbl} Take 1 Tab [facility] N ORAL 8-07 by mouth ity of 10:24: daily. [place] 42 Medical Branch vitamin 0 Yes 500ug Take 500 Unive rs B-12 8-07 mcg by ity of (CYANOCOBAL 10:24: mouth [place] AGUILAR) 500 42 daily. Medical mcg tablet Branch naproxen Yes 2{capsu Take 2 [facility] ers sodium 8-07 le} Caps by ity of (ALEVE) 220 10:24: mouth 2 [place] mg capsule 42 (two) Medical times Branch daily. omeprazole 2018-0 Yes 20mg Take 20 mg U nivers (PRILOSEC) 8-07 by mouth ity o f 20 mg 10:24: daily. [place] capsule 42 Medical Branch HYDROcodone 0 Yes 1{tbl} Take 1 Tab [facility] -acetaminop 8-07 by mouth ity of hen 10:24: as needed [place] (LORTAB) 42 for Pain. Medica l 7.5-500 mg Branch per tablet aspirin 325 2018-0 Yes 325mg Take 325 U nivers mg tablet 8-07 mg by ity of 10:24: mouth [place] 42 daily. Medical Branch MULTIVITAMI Yes 1{tbl} Take 1 Tab [facility] N ORAL 8-07 by mouth ity of 10:24: daily. [place] [address] Medical Branch vitamin 0 Yes 500ug Take 500 Unive rs B-12 8-07 mcg by ity of (CYANOCOBAL 10:24: mouth [place] AGUILAR) 500 42 daily. Medical mcg tablet Branch naproxen Yes 2{capsu Take 2 Univ ers sodium 8-07 le} Caps by ity of (ALEVE) 220 10:24: mouth 2 [place] mg capsule 42 (two) Medical times Branch daily. omeprazole 0 Yes 20mg Take 20 mg U nivers (PRILOSEC) 8-07 by mouth ity o f 20 mg 10:24: daily. [place] capsule 42 Medical Branch HYDROcodone Yes 1{tbl} Take 1 Tab [facility] -acetaminop 8-07 by mouth ity of hen 10:24: as needed [place] (LORTAB) 42 for Pain. Medica l 7.5-500 mg Branch per tablet aspirin 325 20180 Yes 325mg Take 325 U nivers mg tablet 8-07 mg by ity of 10:24: mouth [place] 42 daily. Medical Branch MULTIVITAMI Yes 1{tbl} Take 1 Tab [facility] N ORAL 8-07 by mouth ity of 10:24: daily. [place] [address] Medical Branch vitamin 0 Yes 500ug Take 500 Unive rs B-12 8-07 mcg by ity of (CYANOCOBAL 10:24: mouth [place] AGUILAR) 500 42 daily. Medical mcg tablet Branch naproxen 2018-0 Yes 2{capsu Take 2 Univ ers sodium 8-07 le} Caps by ity of (ALEVE) 220 10:24: mouth 2 [place] mg capsule 42 (two) Medical times Branch daily. omeprazole 2018-0 Yes 20mg Take 20 mg U nivers (PRILOSEC) 8-07 by mouth ity o f 20 mg 10:24: daily. [place] capsule 42 Medical Branch HYDROcodone 0 Yes 1{tbl} Take 1 Tab [facility] -acetaminop 8-07 by mouth ity of hen 10:24: as needed [place] (LORTAB) 42 for Pain. Medica l 7.5-500 mg Branch per tablet aspirin 325 2018-0 Yes 325mg Take 325 U nivers mg tablet 8-07 mg by ity of 10:24: mouth [place] 42 daily. Medical Branch MULTIVITAMI Yes 1{tbl} Take 1 Tab [facility] N ORAL 8-07 by mouth ity of 10:24: daily. [place] [address] Medical Branch vitamin 2017-0 Yes 500ug Take 500 Unive rs B-12 8-07 mcg by ity of (CYANOCOBAL 10:24: mouth [place] AGUILAR) 500 42 daily. Medical [facility] tablet Branch naproxen 0 Yes 2{capsu Take 2 Univ ers sodium 8-07 le} Caps by ity of (ALEVE) 220 10:24: mouth 2 [place] mg capsule 42 (two) Medical times Branch daily. omeprazole 2017-0 Yes 20mg Take 20 mg U nivers (PRILOSEC) 8-07 by mouth ity o f 20 mg 10:24: daily. [place] capsule 42 Medical Branch HYDROcodone 2017-0 Yes 1{tbl} Take 1 Tab [facility] -acetaminop 8-07 by mouth ity of hen 10:24: as needed [place] (LORTAB) 42 for Pain. Medica l 7.5-500 mg Branch per tablet aspirin 325 2018-0 Yes 325mg Take 325 U nivers mg tablet 8-07 mg by ity of 10:24: mouth [place] 42 daily. Medical Branch MULTIVITAMI 0 Yes 1{tbl} Take 1 Tab [facility] N ORAL 8-07 by mouth ity of 10:24: daily. [place] [address] Medical Branch vitamin 2018-0 Yes 500ug Take 500 Unive rs B-12 8-07 mcg by ity of (CYANOCOBAL 10:24: mouth [place] AGUILAR) 500 42 daily. Medical mcg tablet Branch naproxen Yes 2{capsu Take 2 Univ ers sodium 8-07 le} Caps by ity of (ALEVE) 220 10:24: mouth 2 [place] mg capsule 42 (two) Medical times Branch daily. omeprazole 2018-0 Yes 20mg Take 20 mg U nivers (PRILOSEC) 8-07 by mouth ity o f 20 mg 10:24: daily. [place] capsule 42 Medical Branch HYDROcodone 0 Yes 1{tbl} Take 1 Tab [facility] -acetaminop 8-07 by mouth ity of hen 10:24: as needed [place] (LORTAB) 42 for Pain. Medica l 7.5-500 mg Branch per tablet aspirin 325 2017-0 Yes 325mg Take 325 U nivers mg tablet 8-07 mg by ity of 10:24: mouth [place] 42 daily. Medical Branch MULTIVITAMI Yes 1{tbl} Take 1 Tab [facility] N ORAL 8-07 by mouth ity of 10:24: daily. [place] [address] Medical Branch vitamin 0 Yes 500ug Take 500 Unive rs B-12 8-07 mcg by ity of (CYANOCOBAL 10:24: mouth [place] AGUILAR) 500 42 daily. Medical mcg tablet Branch naproxen 0 Yes 2{capsu Take 2 Univ ers sodium 8-07 le} Caps by ity of (ALEVE) 220 10:24: mouth 2 [place] mg capsule 42 (two) Medical times Branch daily. omeprazole Yes 20mg Take 20 mg U nivers (PRILOSEC) 8-07 by mouth ity o f 20 mg 10:24: daily. [place] capsule 42 Medical Branch aspirin 325 2017-0 Yes 325mg Take 325 U nivers mg tablet 8-07 mg by ity of 10:24: mouth [place] 42 daily. Medical Branch MULTIVITAMI Yes 1{tbl} Take 1 Tab [facility] N ORAL 8-07 by mouth ity of 10:24: daily. [place] [address] Medical Branch vitamin 2017-0 Yes 500ug Take 500 Unive rs B-12 8-07 mcg by ity of (CYANOCOBAL 10:24: mouth [place] AGUILAR) 500 42 daily. Medical mcg tablet Branch naproxen 0 Yes 2{capsu Take 2 Univ ers sodium 8-07 le} Caps by ity of (ALEVE) 220 10:24: mouth 2 [place] mg capsule 42 (two) Medical times Branch daily. omeprazole 2018-0 Yes 20mg Take 20 mg U nivers (PRILOSEC) 8-07 by mouth ity o f 20 mg 10:24: daily. [place] [address] Medical Branch aspirin 325 2018-0 Yes 325mg Take 325 U nivers mg tablet 8-07 mg by ity of 10:24: mouth [place] 42 daily. Medical Branch MULTIVITAMI 20180 Yes 1{tbl} Take 1 Tab [facility] N ORAL 8-07 by mouth ity of 10:24: daily. [place] [address] Medical Branch vitamin 2018-0 Yes 500ug Take 500 Unive rs B-12 8-07 mcg by ity of (CYANOCOBAL 10:24: mouth [place] AGUILAR) 500 42 daily. Medical mcg tablet Branch naproxen 2018-0 Yes 2{capsu Take 2 Univ ers sodium 8-07 le} Caps by ity of (ALEVE) 220 10:24: mouth 2 [place] mg capsule 42 (two) Medical times Branch daily. omeprazole 2018-0 Yes 20mg Take 20 mg U nivers (PRILOSEC) 8-07 by mouth ity o f 20 mg 10:24: daily. [place] [address] Medical Branch aspirin 325 2018-0 Yes 325mg Take 325 U nivers mg tablet 8-07 mg by ity of 10:24: mouth [place] 42 daily. Medical Branch MULTIVITAMI 20180 Yes 1{tbl} Take 1 Tab [facility] N ORAL 8-07 by mouth ity of 10:24: daily. [place] [address] Medical Branch vitamin 2018-0 Yes 500ug Take 500 Unive rs B-12 8-07 mcg by ity of (CYANOCOBAL 10:24: mouth [place] AGUILAR) 500 42 daily. Medical mcg tablet Branch naproxen 2018-0 Yes 2{capsu Take 2 Univ ers sodium 8-07 le} Caps by ity of (ALEVE) 220 10:24: mouth 2 [place] mg capsule 42 (two) Medical times Branch daily. omeprazole 2018-0 Yes 20mg Take 20 mg U nivers (PRILOSEC) 8-07 by mouth ity o f 20 mg 10:24: daily. [place] [address] Medical Branch aspirin 325 2018-0 Yes 325mg Take 325 U nivers mg tablet 8-07 mg by ity of 10:24: mouth [place] 42 daily. Medical Branch MULTIVITAMI Yes 1{tbl} Take 1 Tab [facility] N ORAL 8-07 by mouth ity of 10:24: daily. [place] [address] Medical Branch vitamin 2017-0 Yes 500ug Take 500 Unive rs B-12 8-07 mcg by ity of (CYANOCOBAL 10:24: mouth [place] AGUILAR) 500 42 daily. Medical mcg tablet Branch naproxen Yes 2{capsu Take 2 Univ ers sodium 8-07 le} Caps by ity of (ALEVE) 220 10:24: mouth 2 [place] mg capsule 42 (two) Medical times Branch daily. omeprazole 0 Yes 20mg Take 20 mg U nivers (PRILOSEC) 8-07 by mouth ity o f 20 mg 10:24: daily. [place] capsule Medical Branch aspirin 325 Yes 325mg Take 325 U nivers mg tablet 8-07 mg by ity of 10:24: mouth [place] 42 daily. Medical Branch MULTIVITAMI Yes 1{tbl} Take 1 Tab [facility] N ORAL 8-07 by mouth ity of 10:24: daily. [place] [address] Medical Branch vitamin Yes 500ug Take 500 Unive rs B-12 8-07 mcg by ity of (CYANOCOBAL 10:24: mouth [place] AGUILAR) 500 42 daily. Medical mcg tablet Branch naproxen Yes 2{capsu Take 2 Univ ers sodium 8-07 le} Caps by ity of (ALEVE) 220 10:24: mouth 2 [place] mg capsule 42 (two) Medical times Branch daily. omeprazole 0 Yes 20mg Take 20 mg U nivers (PRILOSEC) 8-07 by mouth ity o f 20 mg 10:24: daily. [place] capsule Medical Branch aspirin 325 Yes 325mg Take 325 U nivers mg tablet 8-07 mg by ity of 10:24: mouth [place] 42 daily. Medical Branch MULTIVITAMI Yes 1{tbl} Take 1 Tab [facility] N ORAL 8-07 by mouth ity of 10:24: daily. [address] vitamin Yes 500ug Take 500 Unive rs B-12 8-07 mcg by ity of (CYANOCOBAL 10:24: mouth [place] AGUILAR) 500 42 daily. Medical mcg tablet Branch naproxen 2017-0 Yes 2{capsu Take 2 Univ ers sodium 8-07 le} Caps by ity of (ALEVE) 220 10:24: mouth 2 [place] mg capsule 42 (two) Medical times Branch daily. omeprazole 2018-0 Yes 20mg Take 20 mg U nivers (PRILOSEC) 8-07 by mouth ity o f 20 mg 10:24: daily. [place] capsule 42 Medical Branch aspirin 325 2018-0 Yes 325mg Take 325 U nivers mg tablet 8-07 mg by ity of 10:24: mouth [place] 42 daily. Medical Branch MULTIVITAMI 2017-0 Yes 1{tbl} Take 1 Tab [facility] N ORAL 8-07 by mouth ity of 10:24: daily. [place] [address] Medical Branch vitamin 2017-0 Yes 500ug Take 500 Unive rs B-12 8-07 mcg by ity of (CYANOCOBAL 10:24: mouth [place] AGUILAR) 500 42 daily. Medical mcg tablet Branch naproxen 0 Yes 2{capsu Take 2 Univ ers sodium 8-07 le} Caps by ity of (ALEVE) 220 10:24: mouth 2 [place] mg capsule 42 (two) Medical times Branch daily. omeprazole 2018-0 Yes 20mg Take 20 mg U nivers (PRILOSEC) 8-07 by mouth ity o f 20 mg 10:24: daily. [place] capsule 42 Medical Branch ALPRAZolam 0 Yes .25mg Take 0.25 U nivers 0.25 mg 8-01 mg by ity of tablet 00:00: mouth at [place] 00 bedtime. Medical Branch ALPRAZolam 0 Yes .25mg Take 0.25 U nivers 0.25 mg 8-01 mg by ity of tablet 00:00: mouth at [place] 00 bedtime. Medical Branch ALPRAZolam 0 Yes .25mg Take 0.25 U nivers 0.25 mg 8-01 mg by ity of tablet 00:00: mouth at [place] 00 bedtime. Medical Branch ALPRAZolam 0 Yes .25mg Take 0.25 U nivers 0.25 mg 8-01 mg by ity of tablet 00:00: mouth at [place] 00 bedtime. Medical Branch ALPRAZolam 0 Yes .25mg Take 0.25 U nivers 0.25 mg 8-01 mg by ity of tablet 00:00: mouth at [place] [address] bedtime. Medical Branch ALPRAZolam 2018-0 Yes .25mg Take 0.25 U nivers 0.25 mg 8-01 mg by ity of tablet 00:00: mouth at [place] bedtime. [facility] ALPRAZolam 2018-0 Yes .25mg Take 0.25 U nivers 0.25 mg 8-01 mg by ity of tablet 00:00: mouth at [place] bedtime. [facility] ALPRAZolam 2018-0 Yes .25mg Take 0.25 U nivers 0.25 mg 8-01 mg by ity of tablet 00:00: mouth at [place] [address] bedtime. [facility] Branch ALPRAZolam 2018-0 Yes .25mg Take 0.25 U nivers 0.25 mg 8-01 mg by ity of tablet 00:00: mouth at [place] [address] bedtime. [facility] Branch ALPRAZolam 2018-0 Yes .25mg Take 0.25 U nivers 0.25 mg 8-01 mg by ity of tablet 00:00: mouth at [place] [address] bedtime. [facility] Branch ALPRAZolam 2018-0 Yes .25mg Take 0.25 U nivers 0.25 mg 8-01 mg by ity of tablet 00:00: mouth at [place] [address] bedtime. [facility] Branch ALPRAZolam 2018-0 Yes .25mg Take 0.25 U nivers 0.25 mg 8-01 mg by ity of tablet 00:00: mouth at [place] [address] bedtime. [facility] Branch ALPRAZolam 2018-0 Yes .25mg Take 0.25 U nivers 0.25 mg 8-01 mg by ity of tablet 00:00: mouth at [place] [address] bedtime. [facility] Branch ALPRAZolam 2018-0 Yes .25mg Take 0.25 U nivers 0.25 mg 8-01 mg by ity of tablet 00:00: mouth at [place] [address] bedtime. [facility] Branch ALPRAZolam 2018-0 Yes .25mg Take 0.25 U nivers 0.25 mg 8-01 mg by ity of tablet 00:00: mouth at [place] [address] bedtime. [facility] Branch ALPRAZolam 2018-0 Yes .25mg Take 0.25 U nivers 0.25 mg 8-01 mg by ity of tablet 00:00: mouth at [place] [address] bedtime. [facility] Branch ALPRAZolam 2018-0 Yes .25mg Take 0.25 U nivers 0.25 mg 8-01 mg by ity of tablet 00:00: mouth at [place] bedtime. [facility] ALPRAZolam 2018-0 Yes .25mg Take 0.25 U nivers 0.25 mg 8-01 mg by ity of tablet 00:00: mouth at [place] bedtime. [facility] ALPRAZolam 2018-0 Yes .25mg Take 0.25 U nivers 0.25 mg 8-01 mg by ity of tablet 00:00: mouth at [place] bedtime. [facility] ALPRAZolam 2018-0 Yes .25mg Take 0.25 U nivers 0.25 mg 8-01 mg by ity of tablet 00:00: mouth at [place] bedtime. [facility] ALPRAZolam 2018-0 Yes .25mg Take 0.25 U nivers 0.25 mg 8-01 mg by ity of tablet 00:00: mouth at [place] bedtime. [facility] ALPRAZolam 2018-0 Yes .25mg Take 0.25 U nivers 0.25 mg 8-01 mg by ity of tablet 00:00: mouth at [place] bedtime. [facility] ezetimibe 2018-0 Yes 1{tbl} Take 1 Univ ers 10 mg 7-21 tablet by ity of tablet 00:00: mouth 00 daily. [facility] ezetimibe 2018-0 Yes 1{tbl} Take 1 Univ ers 10 mg 7-21 tablet by ity of tablet 00:00: mouth 00 daily. [facility] Branch ezetimibe 2018-0 Yes 1{tbl} Take 1 Univ ers 10 mg 7-21 tablet by ity of tablet 00:00: mouth 00 daily. [facility] ezetimibe 2018-0 Yes 1{tbl} Take 1 Univ ers 10 mg 7-21 tablet by ity of tablet 00:00: mouth 00 daily. [facility] ezetimibe 2018-0 Yes 1{tbl} Take 1 Univ ers 10 mg 7-21 tablet by ity of tablet 00:00: mouth [place] 00 daily. [facility] ezetimibe 2018-0 Yes 1{tbl} Take 1 Univ ers 10 mg 7-21 tablet by ity of tablet 00:00: mouth [place] 00 daily. [facility] ezetimibe 2017-0 Yes 1{tbl} Take 1 Univ ers 10 mg 7-21 tablet by ity of tablet 00:00: mouth [place] 00 daily. [facility] ezetimibe 2017-0 Yes 1{tbl} Take 1 Univ ers 10 mg 7-21 tablet by ity of tablet 00:00: mouth [place] 00 daily. [facility] Branch ezetimibe 2017-0 Yes 1{tbl} Take 1 Univ ers 10 mg 7-21 tablet by ity of tablet 00:00: mouth [place] 00 daily. [facility] ezetimibe 2017-0 Yes 1{tbl} Take 1 Univ ers 10 mg 7-21 tablet by ity of tablet 00:00: mouth [place] 00 daily. [facility] ezetimibe 2017-0 Yes 1{tbl} Take 1 Univ ers 10 mg 7-21 tablet by ity of tablet 00:00: mouth [place] 00 daily. [facility] ezetimibe 2017-0 Yes 1{tbl} Take 1 Univ ers 10 mg 7-21 tablet by ity of tablet 00:00: mouth [place] 00 daily. [facility] ezetimibe 2017-0 Yes 1{tbl} Take 1 Univ ers 10 mg 7-21 tablet by ity of tablet 00:00: mouth [place] 00 daily. [facility] ezetimibe 2017-0 Yes 1{tbl} Take 1 Univ ers 10 mg 7-21 tablet by ity of tablet 00:00: mouth [place] 00 daily. [facility] ezetimibe 2017-0 Yes 1{tbl} Take 1 Univ ers 10 mg 7-21 tablet by ity of tablet 00:00: mouth [place] 00 daily. [facility] ezetimibe 2017-0 Yes 1{tbl} Take 1 Univ ers 10 mg 7-21 tablet by ity of tablet 00:00: mouth [place] 00 daily. [facility] ezetimibe 2017-0 Yes 1{tbl} Take 1 Univ ers 10 mg 7-21 tablet by ity of tablet 00:00: mouth [place] 00 daily. [facility] Branch ezetimibe 2017-0 Yes 1{tbl} Take 1 Univ ers 10 mg 7-21 tablet by ity of tablet 00:00: mouth [place] 00 daily. [facility] Branch ezetimibe 2017-0 Yes 1{tbl} Take 1 Univ ers 10 mg 7-21 tablet by ity of tablet 00:00: mouth daily. [facility] Branch ezetimibe 2018-0 Yes 1{tbl} Take 1 Univ ers 10 mg 7-21 tablet by ity of tablet 00:00: mouth daily. [facility] Branch ezetimibe 2018-0 Yes 1{tbl} Take 1 Univ ers 10 mg 7-21 tablet by ity of tablet 00:00: mouth daily. [facility] Branch ezetimibe 2018-0 Yes 1{tbl} Take 1 Univ ers 10 mg 7-21 tablet by ity of tablet 00:00: mouth daily. [facility] Branch pantoprazol 2017-0 Yes 40mg Take 40 mg Univers e 40 mg EC 7-17 by mouth ity o f tablet 00:00: daily. [facility] pantoprazol 2017-0 Yes 40mg Take 40 mg Univers e 40 mg EC 7-17 by mouth ity o f tablet 00:00: daily. [place] [facility] pantoprazol 2017-0 Yes 40mg Take 40 mg Univers e 40 mg EC 7-17 by mouth ity o f tablet 00:00: daily. [place] [facility] pantoprazol 2017-0 Yes 40mg Take 40 mg Univers e 40 mg EC 7-17 by mouth ity o f tablet 00:00: daily. [place] [facility] pantoprazol 2017-0 Yes 40mg Take 40 mg Univers e 40 mg EC 7-17 by mouth ity o f tablet 00:00: daily. [place] [facility] pantoprazol 2017-0 Yes 40mg Take 40 mg Univers e 40 mg EC 7-17 by mouth ity o f tablet 00:00: daily. [place] [facility] pantoprazol 2017-0 Yes 40mg Take 40 mg Univers e 40 mg EC 7-17 by mouth ity o f tablet 00:00: daily. [place] [facility] pantoprazol 2017-0 Yes 40mg Take 40 mg Univers e 40 mg EC 7-17 by mouth ity o f tablet 00:00: daily. [place] [facility] pantoprazol 2017-0 Yes 40mg Take 40 mg Univers e 40 mg EC 7-17 by mouth ity o f tablet 00:00: daily. [place] [facility] pantoprazol 2017-0 Yes 40mg Take 40 mg Univers e 40 mg EC 7-17 by mouth ity o f tablet 00:00: daily. [address] pantoprazol 0 Yes 40mg Take 40 mg Univers e 40 mg EC 7-17 by mouth ity o f tablet 00:00: daily. [place] [facility] pantoprazol 0 Yes 40mg Take 40 mg Univers e 40 mg EC 7-17 by mouth ity o f tablet 00:00: daily. [address] pantoprazol Yes 40mg Take 40 mg Univers e 40 mg EC 7-17 by mouth ity o f tablet 00:00: daily. [place] [facility] pantoprazol Yes 40mg Take 40 mg Univers e 40 mg EC 7-17 by mouth ity o f tablet 00:00: daily. [place] [facility] pantoprazol Yes 40mg Take 40 mg Univers e 40 mg EC 7-17 by mouth ity o f tablet 00:00: daily. [address] pantoprazol Yes 40mg Take 40 mg Univers e 40 mg EC 7-17 by mouth ity o f tablet 00:00: daily. [address] pantoprazol Yes 40mg Take 40 mg Univers e 40 mg EC 7-17 by mouth ity o f tablet 00:00: daily. [place] [facility] pantoprazol Yes 40mg Take 40 mg Univers e 40 mg EC 7-17 by mouth ity o f tablet 00:00: daily. [place] [facility] pantoprazol Yes 40mg Take 40 mg Univers e 40 mg EC 7-17 by mouth ity o f tablet 00:00: daily. [address] pantoprazol 2017-0 Yes 40mg Take 40 mg Univers e 40 mg EC 7-17 by mouth ity o f tablet 00:00: daily. [address] pantoprazol Yes 40mg Take 40 mg Univers e 40 mg EC 7-17 by mouth ity o f tablet 00:00: daily. [address] pantoprazol Yes 40mg Take 40 mg Univers e 40 mg EC 7-17 by mouth ity o f tablet 00:00: daily. [address] clopidogrel 2017-2021- No 75mg Take 75 mg Univers 75 mg 7-17 -08 by mouth ity of tablet 00:00: 00:00 daily. [place] [address] clopidogrel 2017-2021- No 75mg Take 75 mg Univers 75 mg 7-17 09-08 by mouth ity of tablet 00:00: 00:00 daily. [place] 00 :00 [facility] nitroglycer Yes 1{tbl} Place 1 M ethodi in 1-[address] (NITROSTAT) 00:00: under the H ospita 0.4 MG SL 00 tongue as l tablet needed. cholestyram Yes 1{packe Q.5D Take 1 M ethodi ine 1-16 t} packet by st (QUESTRAN) 00:00: mouth 2 Hosp shen 4 gram 00 (two) l packet times a day. isosorbide Yes 60mg QD Take 60 mg M ethodi mononitrate 1-[address] (IMDUR) 30 00:00: daily. Hospi ta MG 24 hr 00 l tablet gabapentin Yes 1{capsu Q.[id number] Take 1 Methodi (NEURONTIN) 1-02 le} [id number] capsule by st 300 mg 00:00: 3D mouth 3 Hospita capsule 00 (three) l times a day. cyclobenzap Yes 10mg Q.5D Take 10 mg Methodi rine 1-[address] (FLEXERIL) 00:00: (two) Hospit a 10 mg 00 times a l tablet day. Immunizations Ordered Filled Immunization Date Status Comments [facility] e Immunization Name Name SARS-COV-2 COVID-19 2020-05-17 Completed Unive rsity of PFIZER VACCINE 00:00:00 [facility] [place] [facility] SARS-COV-2 COVID-19 2020-05-17 Completed Unive rsity of PFIZER VACCINE 00:00:00 [facility] [place] [facility] SARS-COV-2 COVID-19 2020-05-17 Completed Unive rsity of PFIZER VACCINE 00:00:00 [facility] [place] [facility] SARS-COV-2 COVID-19 2020-05-17 Completed Unive rsity of PFIZER VACCINE 00:00:00 [facility] [place] [facility] SARS-COV-2 COVID-19 2020-05-17 Completed Unive rsity of PFIZER VACCINE 00:00:00 [facility] [place] [facility] SARS-COV-2 COVID-19 2020-05-17 Completed Unive rsity of PFIZER VACCINE 00:00:00 [facility] [place] [facility] SARS-COV-2 COVID-19 2020-05-17 Completed Unive rsity of PFIZER VACCINE 00:00:00 [facility] SARS-COV-2 COVID-19 2020-05-17 Completed Unive rsity of PFIZER VACCINE 00:00:00 [facility] SARS-COV-2 COVID-19 2020-05-17 Completed Unive rsity of PFIZER VACCINE 00:00:00 [facility] SARS-COV-2 COVID-19 2020-05-17 Completed Unive rsity of PFIZER VACCINE 00:00:00 [facility] SARS-COV-2 COVID-19 2020-05-17 Completed Unive rsity of PFIZER VACCINE 00:00:00 [facility] SARS-COV-2 COVID-19 2020-05-17 Completed Unive rsity of PFIZER VACCINE 00:00:00 [facility] SARS-COV-2 COVID-19 2020-05-17 Completed Unive rsity of PFIZER VACCINE 00:00:00 [facility] SARS-COV-2 COVID-19 2020-05-17 Completed Unive rsity of PFIZER VACCINE 00:00:00 [facility] SARS-COV-2 COVID-19 2020-05-17 Completed Unive rsity of PFIZER VACCINE 00:00:00 [facility] SARS-COV-2 COVID-19 2020-05-17 Completed Unive rsity of PFIZER VACCINE 00:00:00 [facility] [place] [facility] SARS-COV-2 COVID-19 2020-05-17 Completed Unive rsity of PFIZER VACCINE 00:00:00 [facility] [place] [facility] SARS-COV-2 COVID-19 2020-05-17 Completed Unive rsity of PFIZER VACCINE 00:00:00 [facility] SARS-COV-2 COVID-19 2020-05-17 Completed Unive rsity of PFIZER VACCINE 00:00:00 [facility] SARS-COV-2 COVID-19 2020-05-17 Completed Unive rsity of PFIZER VACCINE 00:00:00 [facility] [place] [facility] SARS-COV-2 COVID-19 2020-05-17 Completed Unive rsity of PFIZER VACCINE 00:00:00 [facility] [place] [facility] SARS-COV-2 COVID-19 2020-05-17 Completed Unive rsity of PFIZER VACCINE 00:00:00 [place] [facility] SARS-COV-2 COVID-19 2020-04-26 Completed Unive rsity of PFIZER VACCINE 00:00:00 [facility] SARS-COV-2 COVID-19 2020-04-26 Completed Unive rsity of PFIZER VACCINE 00:00:00 [facility] SARS-COV-2 COVID-19 2020-04-26 Completed Unive rsity of PFIZER VACCINE 00:00:00 [facility] SARS-COV-2 COVID-19 2020-04-26 Completed Unive rsity of PFIZER VACCINE 00:00:00 [facility] SARS-COV-2 COVID-19 2020-04-26 Completed Unive rsity of PFIZER VACCINE 00:00:00 [facility] SARS-COV-2 COVID-19 2020-04-26 Completed Unive rsity of PFIZER VACCINE 00:00:00 [facility] SARS-COV-2 COVID-19 2020-04-26 Completed Unive rsity of PFIZER VACCINE 00:00:00 [facility] SARS-COV-2 COVID-19 2020-04-26 Completed Unive rsity of PFIZER VACCINE 00:00:00 [facility] SARS-COV-2 COVID-19 2020-04-26 Completed Unive rsity of PFIZER VACCINE 00:00:00 [facility] SARS-COV-2 COVID-19 2020-04-26 Completed Unive rsity of PFIZER VACCINE 00:00:00 [facility] SARS-COV-2 COVID-19 2020-04-26 Completed Unive rsity of PFIZER VACCINE 00:00:00 [facility] SARS-COV-2 COVID-19 2020-04-26 Completed Unive rsity of PFIZER VACCINE 00:00:00 [facility] SARS-COV-2 COVID-19 2020-04-26 Completed Unive rsity of PFIZER VACCINE 00:00:00 [facility] SARS-COV-2 COVID-19 2020-04-26 Completed Unive rsity of PFIZER VACCINE 00:00:00 [facility] [place] [facility] SARS-COV-2 COVID-19 2020-04-26 Completed Unive rsity of PFIZER VACCINE 00:00:00 [facility] SARS-COV-2 COVID-19 2020-04-26 Completed Unive rsity of PFIZER VACCINE 00:00:00 [facility] [place] [facility] SARS-COV-2 COVID-19 2020-04-26 Completed Unive rsity of PFIZER VACCINE 00:00:00 [facility] [place] [facility] SARS-COV-2 COVID-19 2020-04-26 Completed Unive rsity of PFIZER VACCINE 00:00:00 [facility] [place] [facility] SARS-COV-2 COVID-19 2020-04-26 Completed Unive rsity of PFIZER VACCINE 00:00:00 [facility] [place] [facility] SARS-COV-2 COVID-19 2020-04-26 Completed Unive rsity of PFIZER VACCINE 00:00:00 [facility] [place] [facility] SARS-COV-2 COVID-19 2020-04-26 Completed Unive rsity of PFIZER VACCINE 00:00:00 [facility] [place] [facility] SARS-COV-2 COVID-19 2020-04-26 Completed Unive rsity of PFIZER VACCINE 00:00:00 [facility] [place] [facility] Vital Signs Vital Name Observation Time Observation Value Comments Source Systolic blood 2022-02-19 14:12:00 166 mm[Hg] Univer sity of [facility] Diastolic blood 2022-02-19 14:12:00 85 mm[Hg] Unive rsity of pressure [facility] Body height 2022-02-19 14:11:00 177.8 cm [facility] Body weight 2022-02-19 14:11:00 82.101 kg [facility] BMI 2022-02-19 14:11:00 25.97 kg/m2 [facility] Systolic blood 2021-11-28 15:48:00 118 mm[Hg] Univer sity of [facility] Diastolic blood 2021-11-28 15:48:00 69 mm[Hg] Unive rsity of pressure [facility] Heart rate 2021-11-28 15:48:00 49 /min [facility] Body temperature 2021-11-28 15:48:00 35.61 Mariama [facility] Respiratory rate 2021-11-28 15:48:00 15 /min Univ ersity of [facility] Body height 2021-11-28 15:48:00 177.8 cm [facility] Body weight 2021-11-28 15:48:00 77.111 kg [facility]i ty [facility] [place] [facility] BMI 2021-11-28 15:48:00 24.39 kg/m2 [facility] [place] [facility] Oxygen saturation in 2021-11-28 15:48:00 95 /min University of Arterial blood by [facility] Pulse oximetry Branch Systolic blood 2021-11-27 04:00:00 134 mm[Hg] Univer sity of pressure [place] [facility] Diastolic blood 2021-11-27 04:00:00 62 mm[Hg] Unive rsity of pressure [place] [facility] Heart rate 2021-11-27 04:00:00 62 /min [facility] [place] [facility] Respiratory rate 2021-11-27 04:00:00 16 /min Univ ersity of [place] [facility] Oxygen saturation in 2021-11-27 04:00:00 94 /min University of Arterial blood by [facility] Pulse oximetry Branch Body temperature 2021-11-27 00:51:00 37.06 Mariama Univ ersity of [place] [facility] Body height 2021-11-27 00:51:00 177.8 cm [facility] [place] [facility] Body weight 2021-11-27 00:51:00 77.111 kg [facility] [place] [facility] BMI 2021-11-27 00:51:00 24.39 kg/m2 [facility] [place] [facility] Systolic blood 2021-11-05 13:39:00 142 mm[Hg] Univer sity of pressure [place] [facility] Diastolic blood 2021-11-05 13:39:00 82 mm[Hg] Unive rsity of pressure [place] [facility] Heart rate 2021-11-05 13:39:00 67 /min [facility] [place] [facility] Body height 2021-11-05 13:39:00 177.8 cm [facility] [place] [facility] Body weight 2021-11-05 13:39:00 77.111 kg [facility] [place] [facility] BMI 2021-11-05 13:39:00 24.39 kg/m2 [facility] [place] [facility] Systolic blood 2021-11-30 15:23:37 117 mm[Hg] [facility] Di[facility] blood 2021-11-30 15:23:37 61 mm[Hg] [facility] pressure Heart rate 2021-11-30 15:23:37 51 /min [facility] Body temperature 2021-11-30 15:23:37 36.5 Mariama [facility] [place] [facility] Respiratory rate 2021-11-30 15:23:37 16 /min [facility] [place] [facility] Oxygen saturation in 2021-11-30 15:23:37 97 /min [facility] Arterial blood by Pulse oximetry Procedures Procedure Date / Time Performing Clinician Source Performed EXTERNAL PROVIDER RECORDS 2022-03-25 06:01:00 Doctor Unassigned, [facility] [place] [facility] POTASSIUM LEVEL 2021-11-30 16:59:00 Kelli Montiel spital TROPONIN T 2021-11-30 16:59:00 [facility] AST (SGOT) 2021-11-30 16:59:00 Kelli Montiel spital XR CHEST 2 VW 2021-11-30 16:04:38 Kelli Montiel spital URINE CULTURE 2021-11-30 15:56:00 Kelli Montiel spital URINALYSIS SCREEN AND 2021-11-30 15:56:00 Dinesh [facility] MICROSCOPY, WITH REFLEX TO CULTURE CBC WITH PLATELET AND 2021-11-30 15:54:00 Dinesh [facility] DIFFERENTIAL COMPREHENSIVE METABOLIC 2021-11-30 15:54:00 [facility] LIPASE LEVEL 2021-11-30 15:54:00 Kelli Montiel spital ESTIMATED GFR 2021-11-30 15:54:00 Kelli Montiel spital TROPONIN T 2021-11-30 15:54:00 Kelli Montiel spital B NATRIURETIC PEPTIDE 2021-11-30 15:54:00 Dinesh [facility] POTASSIUM LEVEL 2021-11-30 15:54:00 Kelli Montiel spital AST (SGOT) 2021-11-30 15:54:00 Kelli Montiel spital ECG ED PRELIMINARY 2021-11-30 15:30:21 Dinesh [facility] INTERPRETATION NOTICE OF PRIVACY 2021-11-28 15:30:26 Doctor Melinda, [facility] PRACTICES [place] [facility] CT ABDOMEN PELVIS W 2021-11-27 03:25:51 Bill Mcneil [facility] CONTRAST Medical Branch LIPASE 2021-11-27 01:33:00 Bill Mcneil [facility] COMP. METABOLIC PANEL 2021-11-27 01:33:00 Bill Mcneil [facility] ([id number]) [facility] CBC WITH DIFF 2021-11-27 01:33:00 Bill Mcneil [facility] URINALYSIS 2021-11-27 01:33:00 Bill Mcneil [facility] CONSENT/REFUSAL FOR 2021-11-27 00:33:20 Doctor Melinda [facility] DIAGNOSIS AND TREATMENT [place] [facility] Plan of Care Planned Activity Planned Date Details Comments Source Future Scheduled 2022-02-11 SHINGLES VACCINES ([address] [facility] Test 19:56:43 of 2) [code = SHINGLES VACCINES (1 of 2)] Future Scheduled 2022-02-11 65+ PNEUMOCOCCAL Methodi [facility] Test 19:56:43 VACCINE (1 - PCV) [code = 65+ PNEUMOCOCCAL VACCINE (1 - PCV)] Future Scheduled 2022-02-11 COVID-19 VACCINE (4 - [facility] Test 19:56:43 Booster for Pfizer series) [code = COVID-19 VACCINE (4 - Booster for Pfizer series)] Encounters Start End Encounter Admission Attending Care Care Encounter Source Date/Time Date/Time Type Type Clinicians Facility Department ID 2022-03-11 Outpatient R STEPHANIE TX[facility]RIC[facility] [id number] Univers 08:06:54 FERNANDO navarro [facility]ly [facility] 2022-03-31 2022-03-31 Telephone GAYLA Brown [id number] Univers 00:00:00 00:00:00 Fernando [facility] [id number] it y of [place] [id number] [place] IVETTE?BLEA [id number] Oh dical [address] MEDICAL OFFICE BUILDING 2022-03-25 2022-03-25 Outpatient R GAYLA ARRIOLA [facility] [id number] Univers 08:00:00 08:00:00 GUANAKITO ity of [facility] 2022-03-25 2022-03-25 Telephone Stephanie [facility] [id number] Univers 00:00:00 00:00:00 Fernando [facility] [id number] it y of [place] [id number] [place] IVETTE?BLEA [id number] Oh dical KNEY [address] MEDICAL OFFICE [facility] 2022-03-25 2022-03-25 Orders Doctor GERALDO [id number] Univers 00:00:00 00:00:00 Only Unassigned, ALON [id number] ity of [place] [facility] 4.2.7.2.686 [place] [id number] [facility] [address] 2022-03-19 2022-03-19 Telephone Zeinab [facility] [id number] Univers 00:00:00 00:00:00 [place] S HEALTH [id number] [facility] [id number] [place] IVETTE?BLEA [id number] Oh dical KNEY 198 [facility] OFFICE [facility] 2022-03-17 2022-03-17 Hospital [facility] [id number] Univers 14:04:31 23:59:00 Encounter Fernandokishan REEVES [id number] ity of [place] [facility] 4.2.7.2.686 [place] [id number] [facility] [address] 2022-03-17 2022-03-17 Outpatient R BROWN [facility] [id number] Univers 13:59:42 14:03:00 FERNANDO ity of [facility] 2022-03-17 2022-03-17 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 Luzmaria Khan Lab Main [facility] [id number] Univers 13:30:00 13:45:00 Visit Brown Fernando Renetta LALA [id number] ity of [place] [facility] 4.2.7.2.686 [place] [facility] [id number] Oh dical NAL 353 [facility] 2022-03-12 2022-03-12 Telephone [facility] [id number] Univers 00:00:00 00:00:00 [place] S HEALTH [id number] it y of [place] 4.2.7.2.686 [place] IVETTE?BLEA [id number] Oh tania MENESES 198 [facility] OFFICE [facility] 2022-02-25 2022-02-25 [facility] [id number] Univers 00:00:00 00:00:00 Surgery Fernando Jackson [employer] [id number] it y of [place] 4.2.7.2.686 [place] IVETTE?BLEA [id number] Oh tania MENESES [address] [facility] 2022-02-19 2022-02-19 [facility] [id number] Univers 08:30:00 [facility]43[facility] 2022-02-19 Office [facility] [id number] Univers 08:30:00 08:43:12 Visit Fernando Jackson [employer] [id number] it y of [place] 4.2.7.2.686 [place]u as IVETTE?BLEA [id number] Oh tania MENESES [address] [place] [address] 2021-12-14 2021-12-14 [facility]phone [facility] [id number] Univers 00:00:00 00:00:00 Fernando Jackson [employer] [id number] it y of [place] [id number] [place] IVETTE?BLEA [id number] Oh tania MENESES 198 [facility] OFFICE [facility] 2021-11-30 2021-11-30 Outpatient R ZEINAB [facility] [id number] Univers 14:30:00 14:30:00 GUANAKITO [place] [facility] 2021-11-30 2021-11-30 Emergency Montiel, 1.2.840.1 [id number] Methodi 10:22:00 14:26:[address] 3.430.2.7 Hospit a .3.636399 l .8 2021-11-30 2021-11-30 Emergency DINESH, [facility] [id number] [place] 00:00:00 00:00:[address] 2021-11-30 2021-11-30 Travel 1.2.840.1 [id number] [id number] Methodi 00:00:00 00:00:[address] 3.430.2.7 0.2.7.3.698 Ho spita .3.289579 084.8 l .8 2021-11-28 2021-11-28 Emergency X [facility] ERT [id number] Univers 10:49:00 12:00:00 RUMA [facility] 2021-11-28 2021-11-28 Emergency [facility] 1.2.000.383 [id number] Univers 10:49:00 12:00:00 Ruma [facility] 350.1.13.10 i [place] [phone] [address] 2021-11-26 2021-11-26 Emergency X [facility] ERT [id number] Univers 19:55:00 23:31:00 BILL [facility] 2021-11-26 2021-11-26 Emergency [facility] 1.2.585.369 [id number] Univers 19:55:00 23:31:00 Bill REEVES 350.1.13.10 ity [facility] [place] [id number] [address] 2021-11-19 2021-11-19 Telephone [facility] 1.2.840.114 [id number] Univers 00:00:00 00:00:00 Fernando [facility] 350.1.13.10 it y of [place] 4.2.7.2.686 Tolu as IVETTE?BLEA [phone] Oh tania [address] MEDICAL OFFICE BUILDING 2021-11-18 2021-11-18 Telephone [facility] 1.2.840.114 [id number] Univers 00:00:00 00:00:00 Fernando [facility] 350.1.13.10 it y of [place] 4.2.7.2.686 Tolu as IVETTE?BLEA [id number] Oh tania MENESES [address] [facility] OFFICE [facility] 2021-11-11 2021-11-11 Telephone [facility] 1.2.840.114 [id number] Univers 00:00:00 00:00:00 Fernando [facility] 350.1.13.10 it y of [place] 4.2.7.2.686 Tolu as IVETTE?BLEA [phone] Oh tania MENESES [address] [facility] 2021-11-05 2021-11-05 [facility] [id number] Univers 08:45:00 09:05:40 FERNANDO [facility] 2021-11-05 2021-11-05 [facility].2.538.763 [id number] Univers 08:45:00 09:05:40 Visit Fernando AUSTIN 350.1.13.10 it y of [place] 4.2.7.2.686 Tolu as IVETTE?BLEA [phone] Oh tania MENESES [address] [facility] 2021-10-19 2021-10-19 Outpatient PARAS MAGUIRE [facility] [id number] Univers 10:00:00 10:28:49 PARAS SNOW [facility] 2021-10-19 2021-10-19 Office Edy [facility] 1.2.840.114 [id number] Univers 10:00:00 10:28:49 Visit Paras Lim [facility] 350.1.13.10 ity of [place] 4.2.7.2.686 Tolu as IVETTE?BLEA [phone] Oh tania MENESES [address] [facility] 2021-10-19 2021-10-19 Outpatient PARAS MAGUIRE [facility] [id number] Univers 10:00:00 10:28:49 PARAS SNOW [facility] 2020-05-26 2020-05-26 [facility] 1.2.840.114 [id number] Univers 00:00:00 00:00:00 Paras Raphael Lala 350.1.13.10 ity of [place] [phone] [address] 2020-05-17 2020-05-17 Outpatient [facility] [id number] Univers 09:10:00 09:10:00 ity of [facility] 2020-04-26 2020-04-26 Outpatient [facility] [id number] Univers 09:15:00 09:15:00 ity [facility] 2020-04-07 2020-04-07 Outpatient PARAS MAGUIRE [facility] [id number] Univers 09:20:00 09:20:00 EDYPARAS Ritchie [facility] 2020-02-18 2020-02-18 [facility] 1.2.840.114 [id number] Univers 00:00:00 00:00:00 Paras Raphael Lala 350.1.13.10 it[place] of [place] [phone] [address] 2019-10-05 2019-10-05 [facility] 1.2.840.114 [id number] Univers 09:21:53 10:10:09 Visit Paras Reeves 350.1.13.10 ity of [place] [phone] [address] 2019-10-05 2019-10-05 Outpatient PARAS MAGUIRE [facility] [id number] Univers 09:20:00 09:20:00 PARAS SNOW [facility] 2019-04-06 2019-04-06 Office Edy [facility] 1.2.840.114 [id number] 07:54:55 09:00:44 Visit Paras Raphael Lala 350.1.13.10 [place] 4.2.7.2.686 Professio [phone] [address] 2019-04-06 2019-04-06 Office Edy [facility] 1.2.840.114 [id number] Univers 07:54:55 09:00:44 Visit Paras Reeves 350.1.13.10 it[place] of [place] [phone] Oh dickatja nal [address] [place] [address] 2019-03-29 2019-03-29 Refill Edy [facility] 1.2.840.114 [id number] Univers 00:00:00 00:00:00 Paras Reevse 350.1.13.10 it[place] of [place] [phone] [address] Results Test Description Test Time Test Comments Results Result Comments Source Urine culture 2021-11-30 16:40:00 Test Item Value Reference Range Interpretation Comme nts Urine culture (test code = 3668480) SEE COMMENT Bacteriuria screen negative. [facility] ED Preliminary Interpretation - Not an [id number] 15:30:21 Test Item Value Reference Range Interpretation Comments FABIO (test code = FABIO) Kelli Montiel MD 12/08/2021 8:34 [facility] ED Preliminary Interpretation - Not an OrderPerformed by: Kelli Montiel MDAuthorized by: Kelli Montiel MD ECG reviewed by ED Physician in the absence of a field services director: yes Interpretation: Interpretation: abnormal Rate: ECG rate: 52 ECG rate assessment: bradycardic Rhythm: Rhythm: sinus bradycardia Ectopy: Ectopy: none QRS: QRS axis: LeftConduction: Conduction: normal ST segments: ST segments: NormalT waves: T waves: normal Comments: Short TN Not a STEMI Lab Interpretation Abnormal (test code = 86966-5) [facility] METABOLIC PANEL ([id number])2021-11-27 01:55:07 Test Item Value Reference Range Interpretation Comments NA (test code = 139 mmol/L 135-145 5838282289) K (test code = 5.4 mmol/L 3.5-5 H 0832545030) CL (test code = 104 mmol/L 98-108 4029634915) CO2 TOTAL (test code = 22 mmol/L 23-31 L 7260201194) AGAP (test code = 2-16 5179055595) BUN (test code = 17 mg/dL 7-23 5639723430) GLUCOSE (test code = 101 mg/dL 70-110 8862298253) CREATININE (test code = 1.24 mg/dL 0.6-1.25 3425100422) TOTAL BILI (test code = 0.8 mg/dL 0.1-1.4 6886969779) CALCIUM (test code = 9.6 mg/dL 8.6-10.6 3318328385) T PROTEIN (test code = 7.9 g/dL 6.3-8.2 4214359681) ALBUMIN (test code = 4.7 g/dL 3.5-5 9709180836) ALK PHOS (test code = 43 U/L 34-122 1695207009) ALTv (test code = 34 U/L 5-50 1742-6) AST(SGOT) (test code = 48 U/L 13-40 H 4678630291) eGFR (test code = mL/min/1.73m2 1376001588) FABIO (test code = FABIO) Association of Glomerular Filtration Rate (GFR) and Staging of Kidney Disease* + --+ --+ ------+| GFR (mL/min/1.73 m2) ?| With Kidney Damage ?| ?Without Kidney Damage+ --------+ --------+ +| ?>90 ?| ?Stage one ?| ? Normal ?+ ---+ ---+ -------+| ?60-89 ?| ?Stage two ?| ? Decreased GFR ? + --+ --+ ------+| ?30-59 ?| ?Stage three ?| ? Stage three ? + --+ --+ ------+| ?15-29 ?| ?Stage four ? | ? Stage four ?+ ---+ ---+ -------+| ?<15 (or dialysis) ? ?| ?Stage five ? | ? Stage five ?+ ---+ ---+ -------+ *Each stage assumes the associated GFR level has been in effect for at least three months. ?Stages 1 to 5, with or without kidney disease, indicate chronic kidney disease. Notes: Determination of stages one and two (with eGFR >59mL/min/1.73 m2) requires estimation of kidney damage for at least three months as defined by structural or functional abnormalities of the kidney, manifested by either:Pathological abnormalities or Markers of kidney damage (including abnormalities in the composition of the blood or urine or abnormalities in imaging tests). Lab Interpretation Abnormal (test code = 60729-5) [facility]47 Test Item Value Reference Range Interpretation Comments LIPASE (test code = 8258468499) 196 U/L 0-220 Lab Interpretation (test code = Normal 47584-8) [facility] [id number] 01:43:26 Test Item Value Reference Range Interpretation Comments WBC (test code = See_Comment [Automated 3390-2) message] The sy stem which generated this result transmitted reference range : 4.20 - 10.70 10*3/?L. The reference range was not used to interpret this result as normal/abnormal . RBC (test code = See_Comment [Automated 379-8) message] The sy stem which generated this result transmitted reference range : 4.26 - 5.52 10*6/?L. The reference range was not used to interpret this result as normal/abnormal . HGB (test code = 16.1 g/dL 12.2-16.4 718-7) HCT (test code = 46.9 % 38.4-49.3 4544-3) MCV (test code = 100.6 fL 81.7-95.6 H 787-2) MCH (test code = 34.5 pg 26.1-32.7 H 785-6) MCHC (test code = 34.3 g/dL 31.2-35 786-4) RDW-SD (test code = 49.0 fL 38.5-51.6 89634-2) RDW-CV (test code = 13.1 % 12.1-15.4 788-0) PLT (test code = See_Comment [Automated 777-3) message] The sy stem which generated this result transmitted reference range : 150 - 328 10*3/ ?L. The reference r destini was not used to interpret this result as normal/abnormal . MPV (test code = 8.3 fL 9.8-13 L 93663-3) NRBC/100 WBC (test See_Comment [Automat ed code = 9962437066) message] The system which generated this result transmitted reference range : 0.0 - 10.0 /100 WBCs. The refer ence range was not u sed to interpret th is result as normal/abnormal . NRBC x10^3 (test code See_Comment [Auto mated = 6610333475) message] The s ystem which generated this result transmitted reference range : 10*3/?L. The reference range was not used to interpret this result as normal/abnormal . GRAN MAT (NEUT) % 57.9 % (test code = 770-8) IMM GRAN % (test code 0.60 % = 1351930124) LYMPH % (test code = 25.0 % 736-9) MONO % (test code = 14.3 % 5905-5) EOS % (test code = 1.3 % 713-8) BASO % (test code = 0.9 % 706-2) GRAN MAT x10^3(ANC) 3.93 10*3/uL 1.99-6.95 (test code = 8212230569) IMM GRAN x10^3 (test 0.04 10*3/uL 0-0.06 code = 0805350962) LYMPH x10^3 (test code 1.70 10*3/uL 1.09-3.23 = 731-0) MONO x10^3 (test code 0.97 10*3/uL 0.36-1.02 = 742-7) EOS x10^3 (test code = 0.09 10*3/uL 0.06-0.53 711-2) BASO x10^3 (test code 0.06 10*3/uL 0.01-0.09 = 704-7) Lab Interpretation Abnormal (test code = 94354-1) [facility]"
[2022-04-09] MEDS ORDERED: ONDANSETRON 4 MG/2 ML VIAL ONE (09:28)
[2022-04-09] MEDS ORDERED: MORPHINE 4 MG/ML SYR ONE (09:28)
[2022-04-09] MEDS ORDERED: NA CHLORIDE 0.9% 1,000 ML ONE (09:28)
[2022-04-09 09:33] LABS: Absolute Lymphocytes (CBC) 1.8 K/uL (0.7-4.9); Hematocrit 40.9 % (39.6-49.0); Lymphocytes % 21.5 % (15.3-44.8); MCV 99.2 fL (80-100); MPV 6.5 fL (7.6-11.3); RBC Red Blood Cell Count 4.12 M/uL (4.33-5.43)
[2022-04-09 09:46] LABS: Albumin 3.4 g/dL (3.4-5.0); Bilirubin Total 0.7 mg/dL (0.2-1.0); Magnesium 2.1 mg/dL (1.6-2.4); Potassium 4.4 mmol/L (3.5-5.1); Protein, Total 7.5 g/dL (6.4-8.2); Troponin High Sensitivity 15.3 pg/mL (<58.9)
--- NOTE | 2022-04-09 10:53 | RAD REPORT ---
EXAM DESCRIPTION: RAD - Hip Left 2 View - 04/09/2022 10:16 am CLINICAL HISTORY: Left hip pain FINDINGS: No fracture or dislocation is seen. Mild osteoarthritis involves the left consisting joint space narrowing and subchondral sclerosis. Bon es appear osteoporotic
[2022-04-09 11:05] LABS: Urine Blood Negative (Negative); Urine Glucose Negative (Negative); Urine Protein Negative (Negative); Urine pH 5.5 (5.0-7.0)
--- NOTE | 2022-04-09 11:16 | ER ---
Nurse's Notes [facility] Name: Dimitri Kelly Age: 81 yrs Sex: Male : 1940 Arrival Date: 04/09/2022 Time: 08:53 Bed 2 Private MD: Diagnosis: Postherpetic neuralgia Presentation: 04/09 08:53 Chief complaint: Patient states: L hip pain EMS states: L hip pain from possible ll1 shingles. BS 107 20 G R hand Ofermev 1 GM IV given. Coronavirus screen: Vaccine status: Patient reports receiving the 2nd dose of the covid vaccine. Client denies travel out of the [place] in the last 14 days. At this time, the client does not indicate any symptoms associated with coronavirus-19. Ebola Screen: Patient denies travel to an Ebola-affected area in the 21 days before illness onset. Initial Sepsis Screen: Does the patient meet any 2 criteria? No. Patient's initial sepsis screen is negative. Does the patient have a suspected source of infection? Yes: Skin breakdown/wound. Risk Assessment: Do you want to hurt yourself or someone else? Patient reports no desire to harm self or others. Onset of symptoms is unknown. 08:53 Method Of Arrival: EMS ll1 08:53 Acuity: CHARO 3 ll1 Triage Assessment: 11:33 General: Appears uncomfortable, Behavior is calm, cooperative, appropriate for age. ll1 Pain: Complains of pain in L hip. Historical: - Allergies: 08:55 Prednisone; ll1 - PMHx: 08:55 Hypertensive disorder; Hypercholesterolemia; ll1 - Immunization history:: Client reports receiving the 2nd dose of the Covid vaccine. - Social history:: Smoking status: Patient denies any tobacco usage or history of. - Family history:: not pertinent. Screenin:10 Abuse screen: Denies threats or abuse. Nutritional screening: No deficits noted. ll1 Tuberculosis screening: No symptoms or risk factors identified. 11:37 [facility] ED Fall Risk Assessment (Adult) Impaired Gait Yes (1 pt) Mobility Assist ll1 Device Used Yes (1 pt) Altered Elimination Yes (1 pt) Score/Fall Risk Level 3 or more points = High Risk Oriented to surroundings, Maintained a safe environment, Educated pt \T\ family on fall prevention, incl call for assistance when getting out of bed, Provided non-skid footwear, Hourly rounding (assess needs \T\ fall precautionary measures) done, Utilized family, sitter, or virtual strategic advisor as indicated. Assessment: 09:33 Reassessment: No changes from previously documented assessment. Patient and/or family ll1 updated on plan of care and expected duration. Pain level reassessed. Patient is alert, oriented x 3, equal unlabored respirations, skin warm/dry/pink. 10:03 Reassessment: No changes from previously documented assessment. X ray done at . ll1 10:50 Reassessment: No changes from previously documented assessment. Patient and/or family ll1 updated on plan of care and expected duration. Pain level reassessed. Patient is alert, oriented x 3, equal unlabored respirations, skin warm/dry/pink. 11:12 Reassessment: No changes from previously documented assessment. Dr. Stover at . ll1 11:33 Reassessment: No changes from previously documented assessment. Patient and/or family ll1 updated on plan of care and expected duration. Pain level reassessed. Patient is alert, oriented x 3, equal unlabored respirations, skin warm/dry/pink. Patient states feeling better. Patient states symptoms have improved. Vital Signs: 08:53 BP 125 / 70; Pulse 54; Resp 18; Temp 98.2; Pulse Ox 95% on R/A; Weight 77.11 kg; Height ll1 5 ft. 10 in. (177.80 cm); Pain 9/10; 09:34 BP 118 / 64; Pulse 54; ll1 10:30 BP 109 / 60; Pulse 53; Resp 16; Pulse Ox 100% on R/A; ll1 11:30 BP 110 / 61; Pulse 50; Resp 16; Pulse Ox 96% on R/A; ll1 08:53 Body Mass Index 24.39 (77.11 kg, 177.80 cm) ll1 ED Course: 08:53 Patient arrived in ED. ll1 08:53 Gregorio Stover MD is Attending Physician. rt 08:55 Triage completed. ll1 08:56 Arm band placed on. ll1 09:08 Hugo Price, TIESHA is Primary Nurse. ll1 09:10 Patient has correct armband on for positive identification. Bed in low position. Call ll1 light in reach. Client placed on continuous cardiac and pulse oximetry monitoring. NIBP monitoring applied. nurse monitoring on. 09:10 Maintain EMS IV. Dressing intact. Good blood return noted. Site clean \T\ dry. Gauge \T\ ll 1 site: 20 G R hand. 10:18 Hip Left 2 View XRAY In Process Unspecified. EDMS 11:32 No provider procedures requiring assistance completed. IV discontinued, intact, ll1 bleeding controlled, No redness/swelling at site. Pressure dressing applied. Administered Medications: 09:31 Drug: NS 0.9% 1000 ml Route: IV; Rate: bolus; Site: right hand; ll1 11:30 Follow up: Response: No adverse reaction; IV Status: Order to discontinue infusion; IV ll1 Intake: 650ml 09:31 Drug: morphine 4 mg Route: IVP; Infused Over: 4 mins; Site: right hand; ll1 11:04 Follow up: Response: No adverse reaction; Pain is decreased; RASS: Alert and Calm (0) ll1 09:31 Drug: Zofran (Ondansetron) 4 mg Route: IVP; Site: right hand; ll1 11:05 Follow up: Response: No adverse reaction ll1 Medication: 09:10 VIS not applicable for this client. ll1 Intake: 11:30 IV: 650ml; Total: 650ml. ll1 Outcome: 11:15 Discharge ordered by . rt 11:33 Patient left the ED. ll1 11:33 Discharged to home via wheelchair. ll1 11:33 Condition: stable 11:33 Discharge instructions given to patient, family, Instructed on discharge instructions, follow up and referral plans. no drinking with medication, no driving heavy equipment, medication usage, Demonstrated understanding of instructions, follow-up care, medications, Prescriptions given X 2. Signatures: Dispatcher [employer] EDMS Hugo Price RN RN ll1 Gregorio Stover MD MD rt Corrections: (The following items were deleted from the chart) 09:09 08:53 77.11 kg; Height 5 ft. 10 in.; BMI: 24.3; Pain 9/10; ll1 ll1 09:32 08:53 BP 125 / 70; Pulse 54bpm; Resp 18bpm; Pulse Ox 95% RA; 77.11 kg; Height 5 ft. 10 ll1 in.; BMI: 24.3; Pain 9/10; ll1
--- NOTE | 2022-04-09 11:16 | EDPHYS ---
Physician Documentation [facility] Name: Dimitri Kelly Age: 81 yrs Sex: Male : 1940 Arrival Date: 04/09/2022 Time: 08:53 Bed 2 Private MD: ED Physician Gregorio Stover HPI: 04/09 09:31 This 81 yrs old Male presents to ER via EMS with complaints of Hip Pain - possible rt shingles. 09:31 Patient presents to the ED with a left hip pain. The patient had shingles in November, rt has since recovered from that, however, has had persistent pain since then for which he is taking 600 mg of gabapentin 3 times a day. Patient states the pain is worsened over the past week, making it difficult for him to get up off of the bed. He does report generalized weakness. He denies other acute complaints at this time. Pain is burning in nature, nonradiating, no other aggravating or alleviating factors.. Historical: - Allergies: 08:55 Prednisone; ll1 - PMHx: 08:55 Hypertensive disorder; Hypercholesterolemia; ll1 - Immunization history:: Client reports receiving the 2nd dose of the Covid vaccine. - Social history:: Smoking status: Patient denies any tobacco usage or history of. - Family history:: not pertinent. ROS: 09:31 Constitutional: Negative for fever, chills, and weight loss. rt 09:31 Cardiovascular: Negative for chest pain, palpitations, and edema, Respiratory: Negative for shortness of breath, cough, wheezing, and pleuritic chest pain, Abdomen/GI: Negative for abdominal pain, nausea, vomiting, diarrhea, and constipation, Skin: Negative for injury, rash, and discoloration, Psych: Negative for depression, anxiety, suicide ideation, homicidal ideation, and hallucinations. 09:31 MS/extremity: Positive for pain, Negative for injury or acute deformity. 09:31 Neuro: Positive for weakness, Negative for altered mental status. Exam: 09:31 Constitutional: This is a well developed, well nourished patient who is awake, alert, rt and in no acute distress. Head/Face: Normocephalic, atraumatic. Neck: Trachea midline, no thyromegaly or masses palpated, and no cervical lymphadenopathy. Supple, full range of motion without nuchal rigidity, or vertebral point tenderness. No Meningismus. Chest/axilla: Normal chest wall appearance and motion. Nontender with no deformity. No lesions are appreciated. Cardiovascular: Regular rate and rhythm with a normal S1 and S2. No gallops, murmurs, or rubs. Normal PMI, no JVD. No pulse deficits. Respiratory: Lungs have equal breath sounds bilaterally, clear to auscultation and percussion. No rales, rhonchi or wheezes noted. No increased work of breathing, no retractions or nasal flaring. Abdomen/GI: Soft, non-tender, with normal bowel sounds. No distension or tympany. No guarding or rebound. No evidence of tenderness throughout. Skin: Warm, dry with normal turgor. Normal color with no rashes, no lesions, and no evidence of cellulitis. Neuro: Awake and alert, GCS 15, oriented to person, place, time, and situation. Cranial nerves II-XII grossly intact. Motor strength 5/5 in all extremities. Sensory grossly intact. Cerebellar exam normal. Normal gait. Psych: Awake, alert, with orientation to person, place and time. Behavior, mood, and affect are within normal limits. 09:31 ECG was reviewed by the Attending Physician. 09:31 Musculoskeletal/extremity: Tenderness diffusely over left hip, no skin changes, no deformity, swelling. Vital Signs: 08:53 BP 125 / 70; Pulse 54; Resp 18; Temp 98.2; Pulse Ox 95% on R/A; Weight 77.11 kg; Height ll1 5 ft. 10 in. (177.80 cm); Pain 9/10; 09:34 BP 118 / 64; Pulse 54; ll1 10:30 BP 109 / 60; Pulse 53; Resp 16; Pulse Ox 100% on R/A; ll1 11:30 BP 110 / 61; Pulse 50; Resp 16; Pulse Ox 96% on R/A; ll1 08:53 Body Mass Index 24.39 (77.11 kg, 177.80 cm) ll1 MDM: 09:05 Patient medically screened. rt 11:19 Differential diagnosis: Postherpetic neuralgia, osteoarthritis, septic arthritis. Data rt reviewed: vital signs, nurses notes, lab test result(s), EKG, radiologic studies. I considered the following discharge prescriptions or medication management in the emergency department Medications were administered in the Emergency Department. See APR. Independent interpretation of the following test(s) in the Emergency Department X-Ray: My interpretation is No dislocation, fracture. Test considered but Not performed: CT: No emergent need for CT scan to rule out acute fracture. Historians other than the Patient: Spouse/Significant Other: . Counseling: I had a detailed discussion with the patient and/or guardian regarding: the historical points, exam findings, and any diagnostic results supporting the discharge/admit diagnosis, the presence of at least one elevated blood pressure reading (>120/80) during this emergency department visit, radiology results, the need for outpatient follow up, for definitive care. Response to treatment: the patient's symptoms have mildly improved after treatment. ED course: Patient and family comfortable with discharge, will follow closely as an outpatient.. 04/09 09:08 Order name: CBC with Diff; Complete Time: 09:55 rt 04/09 09:08 Order name: CMP; Complete Time: 09:55 rt 04/09 09:08 Order name: Troponin High Sensitivity; Complete Time: 09:55 rt 04/09 09:08 Order name: Magnesium; Complete Time: 09:55 rt 04/09 09:08 Order name: CPK; Complete Time: 09:55 rt 04/09 11:05 Order name: Urine Dipstick-Ancillary; Complete Time: 11:06 EDMS 04/09 09:08 Order name: Hip Left 2 View XRAY; Complete Time: 10:54 rt 04/09 09:08 Order name: EKG; Complete Time: 09:08 rt 04/09 09:08 Order name: EKG - Nurse/Tech; Complete Time: 09:32 rt 04/09 09:08 Order name: Urine Dipstick-Ancillary (obtain specimen); Complete Time: 11:04 rt EC:31 Rate is 54 beats/min. Rhythm is regular, Normal Sinus Rhythm with No ectopy, rt Nonspecific intraventricular block. Left axis deviation noted. AR interval is normal. QRS interval is normal. QT interval is normal. No ST changes noted. Administered Medications: : Drug: NS 0.9% 1000 ml Route: IV; Rate: bolus; Site: right hand; ll1 11:30 Follow up: Response: No adverse reaction; IV Status: Order to discontinue infusion; IV ll1 Intake: 650ml 09: Drug: morphine 4 mg Route: IVP; Infused Over: 4 mins; Site: right hand; ll1 11:04 Follow up: Response: No adverse reaction; Pain is decreased; RASS: Alert and Calm (0) ll1 09:31 Drug: Zofran (Ondansetron) 4 mg Route: IVP; Site: right hand; ll1 11:05 Follow up: Response: No adverse reaction ll1 Disposition Summary: 04/09/22 11:15 Discharge Ordered Location: Home rt Problem: an ongoing problem rt Symptoms: are unchanged rt Condition: Stable rt Diagnosis - Postherpetic neuralgia rt Followup: rt - With: Private Physician - When: 2 - 3 days - Reason: Discharge Instructions: - Discharge Summary Sheet rt - Postherpetic Neuralgia rt Forms: - Medication Reconciliation Form rt - Thank You Letter rt - Antibiotic Education rt - Prescription Opioid Use rt Prescriptions: - Lidoderm 5 % Topical adhesive patch,medicated - apply 1 patch by TRANSDERMAL route once daily; 10 patch; Refills: 0, Product rt Selection Permitted - Tylenol-Codeine #3 300 mg-30 mg Oral - take 1 tablet by ORAL route every 6 hours; 21 tablet; Refills: 0, Product rt Selection Permitted Signatures: Dispatcher [employer] Hugo Arellano RN RN ll1 Gregorio Stover MD MD rt
[2022-04-09 11:46] VITALS: BP 118/64; TEMP 98.2; O2SAT 95
== END 2022-04-09 11:33 | disposition home or self-care (01) ==
LOC: ER 08:49
DX: B02.29 Other postherpetic nervous system involvement (principal); R53.1 Weakness; I10 Essential (primary) hypertension; Z88.8 Allergy status to other drugs, medicaments and biological substances
CPT/HCPCS: 96361; 85025; 36415; 83735; 82550; 81003; 84484; 80053; 73502; 96375; 96374; 99284; J7030; J2405; 93005